=== PATIENT | female | born 1980 | race Two or more races ===

== ENCOUNTER 2019-04-13 20:57 | Emergency (ER) | payer MEDICAID ==
[~2019-04-13] VITALS: Ht 165.1 cm; Wt 72.6 kg
[2019-04-13 22:09] LABS: Urine Bacteria FEW /hpf (None Seen); Urine Blood 2+ /uL (Negative); Urine Specific Gravity 1.018 (1.001-1.035); Urine WBC 406 /hpf (0 - 5); Urine WBC Clumps PRESENT /hpf (None Seen)
[2019-04-14 00:41] VITALS: BP 143/95
[2019-04-14] MEDS ORDERED: HYDROcodone-ACET 5/325MG TAB PO ONE (01:15)
[2019-04-14] MEDS ORDERED: ONDANSETRON ODT 4 MG TAB PO ONE (01:15)
== END 2019-04-14 01:28 | disposition home or self-care (01) ==
LOC: ER 21:00
DX: N39.0 Urinary tract infection, site not specified (principal); Z88.5 Allergy status to narcotic agent; Z88.8 Allergy status to other drugs, medicaments and biological substances
CPT/HCPCS: 81001; 81025; 99283; Q0162

== ENCOUNTER 2022-06-06 10:41 | Emergency (ER) | payer MEDICAID ==
[~2022-06-06] VITALS: Ht 167.6 cm; Wt 74.5 kg
[2022-06-06 11:52] LABS: Basophils # (auto) 0 10 ^3/uL (0-0.2); Basophils % (auto) 0.8 % (0.0-2.0); Eosinophils # (auto) 0 10 ^3/uL (0-0.8); Eosinophils % (auto) 0.5 % (0.0-7.0); Hematocrit 40.3 % (36.0-46.0); Hemoglobin 13.6 g/dL (12.2-16.2); Lymphocytes % (auto) 17.1 % (10.0-50.0); Mean Corpuscular Hemoglobin 29.6 pg (28.0-32.0); Mean Corpuscular Hgb Conc. 33.8 g/dL (32.0-36.0); Mean Corpuscular Volume 87.7 fL (80.0-100.0); Monocytes # (auto) 0.3 10 ^3/uL (0-1.3); Monocytes % (auto) 5.3 % (0.0-12.0); Neutrophils # (auto) 4.4 10 ^3/uL (1.6-8.6); Neutrophils % (auto) 76.3 % (37.0-80.0); Red Cell Distribution Width 14.8 % (11.8-14.3); White Blood Cell 5.8 10^3/uL (4.4-10.8)
[2022-06-06 11:54] VITALS: BP 120/87
[2022-06-06 12:11] LABS: Albumin 3.8 g/dL (3.4-5.0); Calcium 8.7 mg/dL (8.5-10.1); Magnesium 2.6 mg/dL (1.6-2.6); Potassium 3.7 mmol/L (3.5-5.1)
[2022-06-06 12:12] LABS: INR 1.04 (0.9-1.15); Partial Thromboplastin Time 28.2 sec (24.6-33.4)
[2022-06-06 12:16] LABS: BUN/Creatinine Ratio 23.3; Bilirubin, Total 0.4 mg/dL (0.2-1.0); Total Protein 7.6 g/dL (6.4-8.2)
[2022-06-06] MEDS ORDERED: HYDR50CA PO (12:50)
== END 2022-06-06 13:02 | disposition home or self-care (01) ==
LOC: ER 10:41
DX: R07.89 Other chest pain (principal); F41.1 Generalized anxiety disorder
CPT/HCPCS: 36415; 71045; 80053; 83735; 83880; 84443; 84484; 85025; 85379; 85610; 85730; 93005

== ENCOUNTER 2022-07-24 07:03 | Emergency (ER) | payer MEDICAID ==
[~2022-07-24] VITALS: Ht 167.6 cm; Wt 77.0 kg
[~2022-07-24 07:03] MED LIST: HYDR50CA PO
[2022-07-24 07:53] LABS: Basophils # (auto) 0.1 10 ^3/uL (0-0.2); Eosinophils # (auto) 0.1 10 ^3/uL (0-0.8); Eosinophils % (auto) 2.5 % (0.0-7.0); Hematocrit 41.4 % (36.0-46.0); Hemoglobin 13.6 g/dL (12.2-16.2); Lymphocytes # (auto) 1.7 10 ^3/uL (0.4-5.4); Lymphocytes % (auto) 32.6 % (10.0-50.0); Mean Corpuscular Hemoglobin 28.6 pg (28.0-32.0); Mean Corpuscular Volume 86.7 fL (80.0-100.0); Monocytes # (auto) 0.3 10 ^3/uL (0-1.3); Monocytes % (auto) 6.6 % (0.0-12.0); Neutrophils # (auto) 2.9 10 ^3/uL (1.6-8.6); Neutrophils % (auto) 56.3 % (37.0-80.0); Nucleated Red Blood Cells % 0.1 %; Red Blood Cells 4.77 10^6/uL (4.0-5.20); Red Cell Distribution Width 15.1 % (11.8-14.3); White Blood Cell 5.1 10^3/uL (4.4-10.8)
[2022-07-24] MEDS ORDERED: SODIUM CHLORIDE 0.9% 1,000 ML IV ONE ×2 (08:00)
[2022-07-24 08:16] LABS: Albumin 3.5 g/dL (3.4-5.0); Calcium 8.1 mg/dL (8.5-10.1)
[2022-07-24 08:20] LABS: BUN/Creatinine Ratio 17.1; Bilirubin, Total 0.3 mg/dL (0.2-1.0); Total Protein 7.4 g/dL (6.4-8.2)
[2022-07-24 11:55] VITALS: BP 118/76
== END 2022-07-24 12:50 | disposition home or self-care (01) ==
LOC: ER 07:03
DX: R07.89 Other chest pain (principal); F41.1 Generalized anxiety disorder; Z88.6 Allergy status to analgesic agent; Z88.8 Allergy status to other drugs, medicaments and biological substances; Z90.710 Acquired absence of both cervix and uterus
CPT/HCPCS: 36415; 71045; 80053; 84484; 85025; 93005

== ENCOUNTER 2022-10-09 11:28 | Emergency (ER) | payer MEDICAID ==
[~2022-10-09] VITALS: Ht 167.6 cm; Wt 77.3 kg
[2022-10-09 11:46] VITALS: BP 122/70
== END 2022-10-09 17:36 | disposition left against medical advice (07) ==
LOC: ER 11:28
DX: R51.9 Headache, unspecified (principal); F41.9 Anxiety disorder, unspecified; R20.2 Paresthesia of skin; Z53.21 Procedure and treatment not carried out due to patient leaving prior to being seen by health care provider

== ENCOUNTER 2025-03-13 11:54 | Emergency (ER) | payer MEDICAID ==
[~2025-03-13] VITALS: Ht 162.6 cm; Wt 75.5 kg
--- NOTE | 2025-03-13 12:21 | ED.PDOC ---
History of Present Illness HPI Comments 45-year-old female presents to the ER with prior medical history of Lyme disease, colitis, anemia, arthritis, thyroid, lupus, RA, hypertension; surgical history of hysterectomy, back surgery and the chief complaint of flu-like symptoms. Patient reports not having a sore throat, fever, chills, heavy chest, headache, shortness a breath, body ache, and cough for the past three days. Denies N/V/D. No other associated symptoms, modifiers, recent injuries or sick contacts present at this time. Chief Complaint: Flu like Time Seen by MD: 12:15 Primary Care Provider: TAMAR Reviewed Notes: Nurses Notes, Medications, Allergies Allergies: Coded Allergies: Alprazolam (Verified Allergy, Unknown, 04/13/19) Ketorolac Tromethamine (Verified Allergy, Unknown, 04/13/19) Morphine (Verified Allergy, Unknown, 04/13/19) Home Meds Active Scripts Levofloxacin Hemihydrate (LEVOFLOXACIN) 500 Mg Tab, 500 MG PO DAILY for 7 Days, #7 MG Prov:BLANCA VILLA MD 03/13/25 Prednisone (Prednisone) 10 Mg Tab, 10 MG PO DAILY for 5 Days, #5 MG Prov:BLANCA VILLA MD 03/13/25 Hydroxyzine Pamoate (Vistaril) 50 Mg Cap, 50 MG PO QHSP PRN, #20 CAP Prov:ALFRED BARRIOS 06/06/22 Information Source: Patient Mode of Arrival: Ambulatory Severity: Moderate Timing: Days Duration: Since onset, Days Prehospital treatment: None Past Medical History PAST MEDICAL HISTORY: Anemia, Arthritis, High Lipids, Thyroid Past Medical History (Other): Lupus, RA, Lyme disease, colitis Surgical History: Hysterectomy Surgical History (Other): Back surgery AUTO CLUTCH SPECIALIST History: No Pertinent AUTO CLUTCH SPECIALIST History Family History Family History: Reviewed,noncontributory to illness, Unknown Social History Smoker: Unknown Alcohol: Unknown Drugs: Unknown Lives In: Home Constitutional: reports: chills, fever, others (Body ache,); denies: diaphoresis, fatigue, malaise, sweats, weakness EENTM: reports: throat swelling; denies: blurred vision, double vision, ear bleeding, ear discharge, ear drainage, ear pain, ear ringing, eye pain, eye redness, hearing loss, mouth pain, mouth swelling, nasal discharge, nose bleeding, nose congestion, nose pain, photophobia, tearing, throat pain, voice changes, others Respiratory: reports: cough, shortness of breath; denies: hemoptysis, orthopnea, SOB at rest, SOB with excertion, stridor, wheezing, others Cardiovascular: reports: chest pain (Heavy chest); denies: dizzy spells, diaphoresis, Dyspnea on exertion, edema, irregular heart beat, left arm pain, lightheadedness, palpitations, PND, syncope, others Gastrointestinal: denies: abdomen distended, abdominal pain, blood streaked bowels, constipated, diarrhea, dysphagia, difficulty swallowing, hematemesis, melena, nausea, poor appetite, poor fluid intake, rectal bleeding, rectal pain, vomiting, others Genitourinary: denies: abnormal vagina bleeding, burning, dyspareunia, dysuria, flank pain, frequency, hematuria, incontinence, pain, , vagina disc harge, urgency, others Neurological: reports: headache; denies: dizziness, fainting, left sided numbness, left sided weakness, numbness, paresthesia, pre-existing deficit, right sided numbness, right sided weakness, seizure, speech problems, tingling, tremors, weakness, others Musculoskeletal: denies: back pain, gout, joint pain, joint swelling, muscle pain, muscle stiffness, neck pain, others Integumetry: denies: bruises, change in color, change in hair/nails, dryness, laceration, lesions, lumps, rash, wounds, others Allergic/Immunocompromised: denies: Difficulty Healing, Frequent Infections, Hives, Itching, others Hematologic/Lymphatic: denies: anemia, blood clots, easy bleeding, easy bruising, swollen glands, others Endocrine: denies: excessive hunger, excessive sweating, excessive thirst, excessive urination, flushing, intolerance to cold, intolerance to heat, unexplained weight gain, unexplained weight loss, others Psychiatric: denies: anxiety, bipolar disorder, depression, hopeless, panic disorder, schizophrenia, sleepless, suicidal, others All Other Systems: Reviewed and Negative Physical Exam General Appearance: Moderate Distress, Normal HEENT: Normal ENT Inspection, Pharynx Normal, TMs Normal Neck: Full Range of Motion, Non-Tender, Normal, Normal Inspection Respiratory: Chest Non-Tender, Lungs Clear, No Accessory Muscle Use, No Respiratory Distress, Normal Breath Sounds Cardiovascular: No Edema, No JVD, No Murmur, No Gallop, Normal Peripheral Pulses, Regular Rate/Rhythm Breast Exam: Deferred Gastrointestinal: No Organomegaly, Non Tender, No Pulsatile Mass, Normal Bowel Sounds, Soft Genitalia: Deferred Pelvic: Deferred Rectal: Deferred Extremities: No calf tenderness, Normal capillary refill, Normal inspection, Normal range of motion, Non-tender, No pedal edema Musculoskeletal : Apperance: Normal 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 Was a procedure done?: No Differential Dx Considerations may include: Pneumonitis Electrolyte imbalance X-Ray, Labs, Meds, VS Vital Signs Date Time Temp Pulse Resp B/P (MAP) Pulse Ox O2 Delivery O2 Flow Rate FiO2 03/13/25 12:02 98.3 110 16 132/87 (102) 97 98.3 Lab Test 03/13/25 12:38 Range/Units D-Dimer, Quantitative 0.29 0.0-0.49 mg/L FEU Patient alert. Complaining of cough congestion. Vitals stable. Answering questions. Saturation pristine on room air. Respiratory rate within normal limits. Clinical examination heart rate within normal limits. D-dimer within normal limits. No leg swelling. Chest x-ray reviewed does show pneumonitis. Was given prescription of prednisolone Levaquin antibiotic. Explained to the patient her diagnosis. Was told to follow up with her primary care physician. Was told to come back if there is any problem. [address] [address] Ph: [phone] DIAGNOSTIC IMAGING Diagnostic Imaging Report : [id number] Signed PATIENT: VALERIANO GARCIA ACCT: [id number] UNIT: [id number] : 1980 LOC: ER ROOM / BED: / AGE / SEX: 45 / F ADM STATUS: REG ER SERVICE [id number] ORDERING PHYSICIAN: BLANCA VILLA MD PROCEDURE(s): CXRP - CHEST PORTABLE REASON: sob ORDER NUMBER(s): [id number], ACCESSION NUMBER(s): [id number] XY CHEST PORTABLE, HISTORY: sob COMPARISON: CHEST PORTABLE on DOS: 07/24/22, CXRP on DOS: 07/24/22, CHEST PORTABLE on DOS: 06/06/22 CHEST PORTABLE on DOS: 07/24/22, CXRP on DOS: 07/24/22, CHEST PORTABLE on DOS: 06/06/22 TECHNICAL DATA: 1 view of the chest was obtained. FINDINGS: Lines and tubes: None Cardiomediastinal silhouette: normal Pulmonary vasculature: normal Lung expansion: normal Lung airspace: normal Lung interstitium: normal Pleura: normal Pneumothorax: no Bones: Unremarkable Other: no IMPRESSION: No acute intrathoracic abnormality. ATED BY: ABDELRAHMAN GARRETT MD DICTATED DATE/TIME: 03/13/25 1300 SIGNED BY: ABDELRAHMAN GARRETT MD SIGNED DATE/TIME: 03/13/25 1300 CC: Time of 1ST Reevaluation: 12:45 Reevaluation 1ST: Improved Patient Education/Counseling: Diagnosis, Treatment, Prognosis Family Education/Counseling: No Family Present Departure 1 Departure Time of Disposition: 13:26 Impression: Primary Impression: Pneumonitis Disposition: 01 HOME / SELF CARE / HOMELESS Condition: Good e-Prescriptions Levofloxacin Hemihydrate (LEVOFLOXACIN) 500 Mg Tab 500 MG PO DAILY for 7 Days, #7 MG Prov: BLANCA VILLA MD 03/13/25 Prednisone (Prednisone) 10 Mg Tab 10 MG PO DAILY for 5 Days, #5 MG Prov: BLANCA VILLA MD 03/13/25 Discharged With: Self Critical Care Note Critical Care Time?: No Stability Stability form required: No Heart Score Heart Score: Heart Score Response (Comments) Value History N/A 0 EKG N/A 0 Age N/A 0 Risk Factors N/A 0 Troponin N/A 0 Total 0 I personally scribed for BLANCA VILLA MD ([email or web address]) on 03/13/25 at 12:21. Electronically submitted by Leobardo Bright ([email or web address]). I personally scribed for BLANCA VILLA MD ([email or web address]) on 03/13/25 at 13:40. Electronically submitted by Leobardo Bright ([email or web address]). BLANCA VILLA MD March 13, 2025 12:21
--- NOTE | 2025-03-13 13:03 | DVH ---
XY CHEST PORTABLE, HISTORY: sob COMPARISON: CHEST PORTABLE on DOS: 07/24/22, CXRP on DOS: 07/24/22, CHEST PORTABLE on DOS: 06/06/22 CHEST PORTABLE on DOS: 07/24/22, CXRP on DOS: 07/24/22, CHEST PORTABLE on DOS: 06/06/22 TECHNICAL DATA: 1 view of the chest was obtained. FINDINGS: Lines and tubes: None Cardiomediastinal silhouette: normal Pulmonary vasculature: normal Lung expansion: normal Lung airspace: normal Lung interstitium: normal Pleura: normal Pneumothorax: no Bones: Unremarkable Other: no IMPRESSION: No acute intrathoracic abnormality.
[2025-03-13] MEDS ORDERED: LEVO500T91 PO (13:27)
[2025-03-13] MEDS ORDERED: PRED10TA PO (13:27)
[2025-03-13 13:43] VITALS: BP 104/70; PULSE 100; RESP 20; TEMP 98.4; O2SAT 98
== END 2025-03-13 13:47 | disposition home or self-care (01) ==
LOC: ER 11:54
DX: J18.9 Pneumonia, unspecified organism (principal); I10 Essential (primary) hypertension; F17.200 Nicotine dependence, unspecified, uncomplicated; M19.90 Unspecified osteoarthritis, unspecified site; Z90.710 Acquired absence of both cervix and uterus; Z98.890 Other specified postprocedural states; Z88.5 Allergy status to narcotic agent
CPT/HCPCS: 36415; 71045; 85379

== ENCOUNTER 2025-04-03 13:43 | Emergency (ER) | payer MEDICAID ==
[~2025-04-03] VITALS: Ht 162.6 cm; Wt 75.6 kg
[~2025-04-03 13:43] MED LIST changes: +LEVO500T91 PO; +PRED10TA PO
--- NOTE | 2025-04-03 13:55 | ED.PDOC ---
SOB-HPI HPI Comments 45y F who presents to the ED for chief complaint of cough. Pt states she has been having cough for the past 4 hours. Pt states she has been having associated dry cough which recently became green and bilious. Pt otherwise states she did recently test positive for COVID. Pt otherwise denies any recent sick contacts. Pt states she was at [facility] 1 month prior with respiratory distress and states she was given antibiotic Levaquin and discharged. Pt otherwise denies any other symptoms at this time. Time Seen by MD: 14:00 Primary Care Provider: TAMAR Rocha notes: Medications, Allergies Information Source: Patient Mode of Arrival: Ambulatory Past Medical History PAST MEDICAL HISTORY: Anemia, Arthritis, High Lipids, Thyroid Surgical History: Hysterectomy CHEMICAL ENGINEER History: No Pertinent CHEMICAL ENGINEER History Family History Family History: Reviewed,noncontributory to illness, Unknown Social History Smoker: Unknown Alcohol: Unknown Drugs: Unknown Lives In: Home Constitutional: denies: chills, diaphoresis, fatigue, fever, malaise, sweats, weakness, others EENTM: denies: blurred vision, double vision, ear bleeding, ear discharge, ear drainage, ear pain, ear ringing, eye pain, eye redness, hearing loss, mouth pain, mouth swelling, nasal discharge, nose bleeding, nose congestion, nose pain, photophobia, tearing, throat pain, throat swelling, voice changes, others Respiratory: reports: cough; denies: hemoptysis, orthopnea, SOB at rest, shortness of breath, SOB with excertion, stridor, wheezing, others Cardiovascular: denies: chest pain, dizzy spells, diaphoresis, Dyspnea on exertion, edema, irregular heart beat, left arm pain, lightheadedness, palpitations, PND, syncope, others Gastrointestinal: denies: abdomen distended, abdominal pain, blood streaked bowels, constipated, diarrhea, dysphagia, difficulty swallowing, hematemesis, melena, nausea, poor appetite, poor fluid intake, rectal bleeding, rectal pain, vomiting, others Genitourinary: denies: abnormal vagina bleeding, burning, dyspareunia, dysuria, flank pain, frequency, hematuria, incontinence, pain, , vagina discharge, urgency, others Neurological: denies: dizziness, fainting, headache, left sided numbness, left sided weakness, numbness, paresthesia, pre-existing deficit, right sided nu mbness, right sided weakness, seizure, speech problems, tingling, tremors, weakness, others Musculoskeletal: denies: back pain, gout, joint pain, joint swelling, muscle pain, muscle stiffness, neck pain, others Integumetry: denies: bruises, change in color, change in hair/nails, dryness, laceration, lesions, lumps, rash, wounds, others Allergic/Immunocompromised: denies: Difficulty Healing, Frequent Infections, Hives, Itching, others Hematologic/Lymphatic: denies: anemia, blood clots, easy bleeding, easy bruising, swollen glands, others Endocrine: denies: excessive hunger, excessive sweating, excessive thirst, excessive urination, flushing, intolerance to cold, intolerance to heat, unexplained weight gain, unexplained weight loss, others Psychiatric: denies: anxiety, bipolar disorder, depression, hopeless, panic disorder, schizophrenia, sleepless, suicidal, others All Other Systems: Reviewed and Negative Physical Exam General Appearance: No Apparent Distress, Normal HEENT: Normal ENT Inspection, Pharynx Normal, TMs Normal Neck: Full Range of Motion, Non-Tender, Normal, Normal Inspection Respiratory: Other (mild cough,) Cardiovascular: No Edema, No JVD, No Murmur, No Gallop, Normal Peripheral Pulses, Regular Rate/Rhythm Breast Exam: Deferred Gastrointestinal: No Organomegaly, Non Tender, No Pulsatile Mass, Normal Bowel Sounds, Soft Genitalia: Deferred Pelvic: Deferred Rectal: Deferred Extremities: No calf tenderness, Normal capillary refill, Normal inspection, Normal range of motion, Non-tender, No pedal edema Musculoskeletal : Apperance: Normal 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 Was a procedure done?: No Differential Dx Differential Diagnosis: Anxiety, Asthma, Bronchitis, Panic Attack, Pneumonia, Pneumothorax, Respiratory Distress, Pharyngitis, URI Comments COVID, Influenza A and B, X-Ray, Labs, Meds, VS Vital Signs Date Time Temp Pulse Resp B/P (MAP) Pulse Ox O2 Delivery O2 Flow Rate FiO2 04/03/25 14:15 20 96 Room Air* 0 21 04/03/25 13:50 20 98 Room Air* 0 21 6/14/25 13:50 98.4 126 20 133/76 (95) 98 98.4 Current Medications Medications (Trade) Dose Ordered Sig/Dina Route Start Time Stop Time Status Last Admin Albuterol (Ventolin Medneb) 5 mg ONCE ONCE NEB 04/03/25 14:00 04/03/25 14:01 DC 04/03/25 14:15 Ipratropium Meridian (Atrovent Medneb) 0.5 mg ONCE ONCE NEB 04/03/25 14:00 04/03/25 14:01 DC 04/03/25 14:15 Dexamethasone (Decadron Tablet) 4 mg ONCE ONCE PO 04/03/25 14:00 04/03/25 14:01 DC 04/03/25 14:28 Promethazine HCl/ Codeine (Phenergan W/ Codeine) 5 ml ONCE ONCE PO 04/03/25 14:00 04/03/25 14:01 DC 04/03/25 14:28 [place] [address] Ph: [phone] DIAGNOSTIC IMAGING Diagnostic Imaging Report : [id number] Signed PATIENT: VALERIANO GARCIA ACCT: [id number] UNIT: [id number] : 1980 LOC: ER ROOM / BED: / AGE / SEX: 45 / F ADM STATUS: REG ER SERVICE 1350 ORDERING PHYSICIAN: YOVANNY TOWNSEND MD PROCEDURE(s): CXRP - CHEST PORTABLE REASON: cough ORDER NUMBER(s): [id number], ACCESSION NUMBER(s): [id number] XY CHEST PORTABLE, HISTORY: cough COMPARISON: XY CHEST PORTABLE on DOS: 03/13/25, CHEST PORTABLE on DOS: 07/24/22, CXRP on DOS: 07/24/22 XY CHEST PORTABLE on DOS: 03/13/25, CHEST PORTABLE on DOS: 07/24/22, CXRP on DOS: 07/24/22 TECHNICAL DATA: 1 view of the chest was obtained. FINDINGS: Lines and tubes: None Cardiomediastinal silhouette: normal Pulmonary vasculature: normal Lung expansion: normal Lung airspace: normal Lung interstitium: normal Pleura: normal Pneumothorax: no Bones: Unremarkable Other: no IMPRESSION: No acute intrathoracic abnormality. ATED BY: ABDELRAHMAN GARRETT MD DICTATED DATE/TIME: 04/03/251423 SIGNED BY: ABDELRAHMAN GARRETT MD SIGNED DATE/TIME: 04/03/251423 CC: Time of 1ST Reevaluation: 15:00 Reevaluation 1ST: Improved Patient Education/Counseling: Diagnosis, Treatment Family Education/Counseling: No Family Present Departure 1 Departure Time of Disposition: 14:57 Impression: Primary Impression: Bronchitis Disposition: 01 HOME / SELF CARE / HOMELESS Condition: Good e-Prescriptions Benzonatate (Benzonatate) 200 Mg Cap 200 MG PO Q6HP PRN, #30 CAP Prov: YOVANNY TOWNSEND MD 04/03/25 Prednisone (Prednisone) 20 Mg Tab 20 MG PO DAILY, #5 TAB Prov: YOVANNY TOWNSEND MD 04/03/25 Ipratropium-Albuterol (COMBIVENT RESPIMAT) Respimat Aer 1 EA IN Q4HP PRN, #1 AER Prov: YOVANNY TOWNSEND MD 04/03/25 Discharged With: Self Critical Care Note Critical Care Time?: No Stability Stability form required: No Heart Score Heart Score: Heart Score Response (Comments) Value History N/A 0 EKG N/A 0 Age N/A 0 Risk Factors N/A 0 Troponin N/A 0 Total 0 I personally scribed for YOVANNY TOWNSEND MD ([email or web address]) on 04/03/25 at 13:55. Electronically submitted by Leobardo Bright ([email or web address]). I personally scribed for YOVANNY TOWNSEND MD ([email or web address]) on 04/03/25 at 14:02. Electronically submitted by Consuelo Cm ([email or web address]). I personally scribed for YOVANNY TOWNSEND MD ([email or web address]) on 04/03/25 at 14:39. Electronically submitted by Consuelo Cm ([email or web address]). YOVANNY TOWNSEND MD Apr 03, 2025 13:55
[2025-04-03] MEDS: IPRATROPIUM BROM 0.5 MG/2.5ML INH SOL NEB ONE (14:15)
[2025-04-03] MEDS: ALBUTEROL SULF 2.5 MG/0.5ML(0.5%) NEB SOLN NEB ONE (14:15)
--- NOTE | 2025-04-03 14:26 | DVH ---
XY CHEST PORTABLE, HISTORY: cough COMPARISON: XY CHEST PORTABLE on DOS: 03/13/25, CHEST PORTABLE on DOS: 07/24/22, CXRP on DOS: 07/24/22 XY CHEST PORTABLE on DOS: 03/13/25, CHEST PORTABLE on DOS: 07/24/22, CXRP on DOS: 07/24/22 TECHNICAL DATA: 1 view of the chest was obtained. FINDINGS: Lines and tubes: None Cardiomediastinal silhouette: normal Pulmonary vasculature: normal Lung expansion: normal Lung airspace: normal Lung interstitium: normal Pleura: normal Pneumothorax: no Bones: Unremarkable Other: no IMPRESSION: No acute intrathoracic abnormality.
[2025-04-03] MEDS: DexAMETHasone 4 MG TAB PO ONE (14:28)
[2025-04-03] MEDS: PROMETHAZINE W/CODEINE 5 ML ORAL SYRUP PO ONE (14:28)
[2025-04-03] MEDS ORDERED: PRED20TA2 PO (15:00)
[2025-04-03] MEDS ORDERED: BENZ200C64 PO (15:00)
[2025-04-03] MEDS ORDERED: IPRAAER6 IN (15:00)
[2025-04-03 15:15] VITALS: BP 129/87; PULSE 76; RESP 19; TEMP 98.6; O2SAT 94
== END 2025-04-03 15:21 | disposition home or self-care (01) ==
LOC: ER 13:43
DX: J40 Bronchitis, not specified as acute or chronic (principal); M19.90 Unspecified osteoarthritis, unspecified site; E78.5 Hyperlipidemia, unspecified; U07.1 COVID-19; Z86.2 Personal history of diseases of the blood and blood-forming organs and certain disorders involving the immune mechanism; Z90.710 Acquired absence of both cervix and uterus
CPT/HCPCS: 71045; 94640; 99283; J8540

== ENCOUNTER 2025-08-15 13:08 | Emergency (ER) | payer MEDICAID ==
[~2025-08-15] VITALS: Ht 162.6 cm; Wt 73.9 kg
[~2025-08-15 13:08] MED LIST changes: +BENZ200C64 PO; +IPRAAER6 IN; +PRED20TA2 PO
[2025-08-15 13:50] LABS: Urine Protein, UAD Negative (Negative)
--- NOTE | 2025-08-15 14:04 | ED.PDOC ---
GI ASSESSMENT HPI Comments This is a 45 year-old female who presents to the ED with a chief complaint of constipation for X5 days. Patient reports additional symptoms of abdominal distention and pain with associated constipation. Patient reports this happening before, where she was prescribed Linzess with relief. Patient states after taking Linzess for current symptoms, she has experienced no relief. Patient has a PMHx of HTN and hyperlipidemia, but otherwise denies further associated symptoms of dysuria, hematuria, N/V/D, fever, or chills. Chief Complaint: Constipation Time Seen by MD: 13:42 Primary Care Provider: n/a Reviewed Notes: Medications, Allergies Allergies: Coded Allergies: Droperidol (Verified Allergy, Severe, 08/15/25) Vancomycin (Verified Allergy, Mild, HIVES, 04/03/25) Alprazolam (Verified Allergy, Unknown, 04/13/19) Ketorolac Tromethamine (Verified Allergy, Unknown, 04/13/19) Morphine (Verified Allergy, Unknown, 04/13/19) Levofloxacin (Verified Adverse Reaction, Mild, 04/03/25) Uncoded Allergies: CONTRAST (Allergy, Unknown, 08/15/25) Home Meds Active Scripts Benzonatate (Benzonatate) 200 Mg Cap, 200 MG PO Q6HP PRN, #30 CAP Prov:YOVANNY TOWNSEND MD 04/03/25 Prednisone (Prednisone) 20 Mg Tab, 20 MG PO DAILY, #5 TAB Prov:YOVANNY TOWNSEND MD 04/03/25 Ipratropium-Albuterol (COMBIVENT RESPIMAT) Respimat Aer, 1 EA IN Q4HP PRN, #1 AER Prov:YOVANNY TOWNSEND MD 04/03/25 Levofloxacin Hemihydrate (LEVOFLOXACIN) 500 Mg Tab, 500 MG PO DAILY for 7 Days, #7 MG Prov:BLANCA VILLA MD 03/13/25 Prednisone (Prednisone) 10 Mg Tab, 10 MG PO DAILY for 5 Days, #5 MG Prov:BLANCA VILLA MD 03/13/25 Hydroxyzine Pamoate (Vistaril) 50 Mg Cap, 50 MG PO QHSP PRN, #20 CAP Prov:ALFRED BARRIOS 06/06/22 Information Source: Patient Mode of Arrival: Ambulatory Timing: Days Duration: Since onset Severity: Moderate Associated sign and symptoms: Constipation, Abdominal Pain Past Medical History PAST MEDICAL HISTORY: Anemia, Arthritis, High Lipids, HTN, Thyroid Surgical History: Hysterectomy 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: No Pertinent 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 Family History Family History: Reviewed,noncontributory to illness, Unknown Social History Smoker: Unknown Alcohol: Unknown Drugs: Unknown Lives In: Home Constitutional: denies: chills, diaphoresis, fatigue, fever, malaise, sweats, weakness, others EENTM: denies: blurred vision, double vision, ear bleeding, ear discharge, ear drainage, ear pain, ear ringing, eye pain, eye redness, hearing loss, mouth pain, mouth swelling, nasal discharge, nose bleeding, nose congestion, nose pain, photophobia, tearing, throat pain, throat swelling, voice changes, others Respiratory: denies: cough, hemoptysis, orthopnea, SOB at rest, shortness of breath, SOB with excertion, stridor, wheezing, others Cardiovascular: denies: chest pain, dizzy spells, diaphoresis, Dyspnea on exertion, edema, irregular heart beat, left arm pain, lightheadedness, palpitations, PND, syncope, others Gastrointestinal: reports: abdomen distended, abdominal pain, constipated; denies: blood streaked bowels, diarrhea, dysphagia, difficulty swallowing, hematemesis, melena, nausea, poor appetite, poor fluid intake, rectal bleeding, rectal pain, vomiting, others Genitourinary: denies: abnormal vagina bleeding, burning, dyspareunia, dysuria, flank pain, frequency, hematuria, incontinence, pain, , vagina discharge, urgency, others Neurological: denies: dizziness, fainting, headache, left sided numbness, left sided weakness, numbness, paresthesia, pre-existing deficit, right sided numbness, right sided weakness, seizure, speech problems, tingling, tremors, weakness, others Musculoskeletal: denies: back pain, gout, joint pain, joint swelling, muscle pain, muscle stiffness, neck pain, others Integumetry: denies: bruises, change in color, change in hair/nails, dryness, laceration, lesions, lumps, rash, wounds, others Allergic/Immunocompromised: denies: Difficulty Healing, Frequent Infections, Hives, Itching, others Hematologic/Lymphatic: denies: anemia, blood clots, easy bleeding, easy bruising, swollen glands, others Endocrine: denies: excessive hunger, excessive sweating, excessive thirst, excessive urination, flushing, intolerance to cold, intolerance to heat, unexplained weight gain, unexplained weight loss, others Psychiatric: denies: anxiety, bipolar disorder, depression, hopeless, panic disorder, schizophrenia, sleepless, suicidal, others All Other Systems: Reviewed and Negative Physical Exam General Appearance: Moderate Distress HEENT: Normal ENT Inspection, Pharynx Normal, TMs Normal Neck: Full Range of Motion, Non-Tender, Normal, Normal Inspection Respiratory: Chest Non-Tender, Lungs Clear, No Accessory Muscle Use, No Respiratory Distress, Normal Breath Sounds Cardiovascular: No Edema, No JVD, No Murmur, No Gallop, Normal Peripheral Pulses, Regular Rate/Rhythm Breast Exam: Deferred Gastrointestinal: No Organomegaly, Non Tender, No Pulsatile Mass, Normal Bowel Sounds, Soft Genitalia: Deferred Pelvic: Deferred Rectal: Deferred Extremities: No calf tenderness, Normal capillary refill, Normal inspection, Normal range of motion, Non-tender, No pedal edema Musculoskeletal : Apperance: Normal Neurologic: Alert, 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 Was a procedure done?: No GI differential Dx Differential Diagnosis: Constipation, Diverticular disease, Esophagitis, Gastritis/PUD, Gastroenteritis, Urolithiasis, Dehydration, Food Poisoning, Bacterial, Parasitic, Viral X-Ray, Labs, Meds, VS Vital Signs Date Time Temp Pulse Resp B/P (MAP) Pulse Ox O2 Delivery O2 Flow Rate FiO2 08/15/25 13:11 97.5 85 18 130/83 100 97.5 Lab Test 08/15/25 13:42 Range/Units Urine Color Light-yellow Yellow Urine Clarity Clear Clear Urine pH 7.5 5.0-9.0 Urine Specific [place] 1.020 1.001-1.035 Urine Protein Negative Negative Urine Ketones Negative Negative Urine Blood Negative Negative /uL Urine Nitrite Negative Negative Urine Bilirubin Negative Negative Urine Urobilinogen 2 H Negative mg/dL Urine Leukocyte Esterase Negative Negative /uL Urine RBC 2 0 - 4 /hpf Urine Microscopic WBC 1 0-5 /HPF Urine Squamous Epithelial Cells Few <5 /hpf Urine Bacteria Few H None Seen /hpf Urine Glucose Normal Normal mg/dL [facility] [id number] [facility] [address] Ph: [phone] DIAGNOSTIC IMAGING Diagnostic Imaging Report : [id number] Signed PATIENT: VALERIANO GARCIA ACCT: [id number] UNIT: [id number] : 1980 LOC: ER ROOM / BED: / AGE / SEX: 45 / F ADM STATUS: REG ER SERVICE 1400 ORDERING PHYSICIAN: BLANCA VILLA MD PROCEDURE(s): KUB - KUB ABDOMEN SINGLE VIEW REASON: constipation ORDER NUMBER(s): [id number], ACCESSION NUMBER(s): [id number] Date: 08/15/2025 02:18 PM Examination: XY KUB ABDOMEN SINGLE VIEW History: constipation Comparison: XR ABDOMEN 1 VIEW (KUB) on DOS: 07/30/23, XR ABDOMEN 1 VIEW (KUB) on DOS: 07/28/23 TECHNIQUE: Frontal views of the abdomen was obtained. FINDINGS: Bowel gas pattern is unremarkable. Stool is noted throughout the colon may represent constipation The lung bases are unremarkable. Pedicle screws and rods are in place at L5-S1 on the left. Intervertebral spac ers noted. IMPRESSION: 1. Nonobstructive bowel gas pattern. 2. Large stool burden throughout the colon may represent constipation. 3. Postop changes at L5-S1 on the left. Patient alert. Complaining of constipation. Vitals stable. Answering all questions. Ambulating. KUB does show constipation. Was given Fleet enema. Was told to follow up with her primary care physician. Was told to come back if there is any problem. Images Reviewed?: Images reviewed and evaluated by me Time of 1ST Reevaluation: 14:42 Reevaluation 1ST: Unchanged Patient Education/Counseling: Diagnosis, Treatment Family Education/Counseling: No Family Present SEPSIS Sepsis Screen Date sepsis recognized/suspect: Aug 15, 2025 Time Sepsis recognized/suspect: 1314 Recent Procedure: No On Antibiotic Therapy: No Respiratory Rate >20: No Heart Rate >90: No Temp<36 C (96.8 F) or >38.3 C: No SBP <90 or MAP <65 mmHG: No New Acute Mental Status Change: No Is the patient on CPAP, BIPAP,: No Physician Orders Kub Abdomen Single View (08/15/25 14:00) Fleet Enema Adult (08/15/25 15:30) Vital Signs Date Time Temp Pulse Resp B/P (MAP) Pulse Ox O2 Delivery O2 Flow Rate FiO2 08/15/25 13:11 97.5 85 18 130/83 100 97.5 Departure 1 Departure Time of Disposition: 15:22 Impression: Primary Impression: Constipation Qualified Codes: K59.01 - Slow transit constipation Disposition: 01 HOME / SELF CARE / HOMELESS Condition: Good Discharged With: Self Critical Care Note Critical Care Time?: No Stability Stability form required: No Heart Score Heart Score: Heart Score Response (Comments) Value History N/A 0 EKG N/A 0 Age N/A 0 Risk Factors N/A 0 Troponin N/A 0 Total 0 I personally scribed for BLANCA VILLA MD ([email or web address]) on 08/15/25 at 14:04. Electronically submitted by Maty Granger ([employer]). I personally scribed for BLANCA VILLA MD ([email or web address]) on 08/15/25 at 14:44. Electronically submitted by Maty Granger ([employer]). BLANCA VILLA MD Aug 15, 2025 14:04
--- NOTE | 2025-08-15 14:40 | DVH ---
Date: 08/15/2025 02:18 PM Examination: XY KUB ABDOMEN SINGLE VIEW History: constipation Comparison: XR ABDOMEN 1 VIEW (KUB) on DOS: 07/30/23, XR ABDOMEN 1 VIEW (KUB) on DOS: 07/28/23 TECHNIQUE: Frontal views of the abdomen was obtained. FINDINGS: Bowel gas pattern is unremarkable. Stool is noted throughout the colon may represent constipation The lung bases are unremarkable. Pedicle screws and rods are in place at L5-S1 on the left. Intervertebral spacers noted. IMPRESSION: 1. Nonobstructive bowel gas pattern. 2. Large stool burden throughout the colon may represent constipation. 3. Postop changes at L5-S1 on the left.
[2025-08-15 15:29] VITALS: BP 126/76; TEMP 97.5
[2025-08-15 15:33] VITALS: PULSE 74; RESP 16; O2SAT 100
[2025-08-15] MEDS: FLEET ENEMA(ADULT) 135 ML PR ONE (15:35)
== END 2025-08-15 15:35 | disposition home or self-care (01) ==
LOC: ER 13:08
DX: K59.00 Constipation, unspecified (principal); I10 Essential (primary) hypertension; E78.5 Hyperlipidemia, unspecified; M19.90 Unspecified osteoarthritis, unspecified site; F17.200 Nicotine dependence, unspecified, uncomplicated; Z90.710 Acquired absence of both cervix and uterus; Z88.5 Allergy status to narcotic agent; Z88.1 Allergy status to other antibiotic agents
CPT/HCPCS: 74018; 81001

== ENCOUNTER 2025-10-10 02:24 | Inpatient (IN) | payer MEDICAID ==
[~2025-10-10] VITALS: Ht 167.6 cm; Wt 98.1 kg
[~2025-10-10 02:24] MED LIST changes: +ATOR40TA52 PO; +ERGO1CAP12 PO; +LINA1CAP2 PO; +LOSA50TA30 PO; +MECL-126 PO; +SEMA2.4I SC; +TIZA6CAP PO
[2025-10-10] MEDS: fentaNYL CITRATE 100 MCG/2 ML VL IV ONE ×2 (03:00→09:00)
--- NOTE | 2025-10-10 03:07 | ED.PDOC ---
History of Present Illness HPI Comments 45 y/o F is BIBA for c/c of abdominal pain, nausea, vomiting, diarrhea, and lightheadedness. Significant history for anemia, arthritis, HLD, HTN, IBS - on Linaclotide, hypothyroidism, and hysterectomy. Symptoms began, suddenly, at around [id number], yesterday. No endorsed recent travel, injuries, sick contacts, or further pertinent events or history. Denial of any bloody or bilious vomitus, constipation, or further acute symptoms. Chief Complaint: Nausea/Vomiting Time Seen by MD: 02:45 Primary Care Provider: n/a Reviewed Notes: Nurses Notes, Cigar Head Pegger Notes, Medications, Allergies Allergies: Coded Allergies: Droperidol (Verified Allergy, Severe, 08/15/25) Vancomycin (Verified Allergy, Mild, HIVES, 04/03/25) Alprazolam (Verified Allergy, Unknown, 04/13/19) Ketorolac Tromethamine (Verified Allergy, Unknown, 04/13/19) Morphine (Verified Allergy, Unknown, 04/13/19) Levofloxacin (Verified Adverse Reaction, Mild, 04/03/25) Uncoded Allergies: CONTRAST (Allergy, Unknown, 08/15/25) Home Meds Active Scripts Benzonatate (Benzonatate) 200 Mg Cap, 200 MG PO Q6HP PRN, #30 CAP Prov:YOVANNY TOWNSEND MD 04/03/25 Prednisone (Prednisone) 20 Mg Tab, 20 MG PO DAILY, #5 TAB Prov:YOVANNY TOWNSEND MD 04/03/25 Ipratropium-Albuterol (COMBIVENT RESPIMAT) Respimat Aer, 1 EA IN Q4HP PRN, #1 AER Prov:YOVANNY TOWNSEND MD 04/03/25 Levofloxacin Hemihydrate (LEVOFLOXACIN) 500 Mg Tab, 500 MG PO DAILY for 7 Days, #7 MG Prov:BLANCA VILLA MD 03/13/25 Prednisone (Prednisone) 10 Mg Tab, 10 MG PO DAILY for 5 Days, #5 MG Prov:BLANAC VILLA MD 03/13/25 Hydroxyzine Pamoate (Vistaril) 50 Mg Cap, 50 MG PO QHSP PRN, #20 CAP Prov:ALFRED BARRIOS 06/06/22 Information Source: Patient, Emergency Med Personnel Mode of Arrival: EMS Severity: Moderate Timing: Hours Duration: Since onset Prehospital treatment: 12 Lead EKG, Accucheck, Desktop Operator Past Medical History PAST MEDICAL HISTORY: Anemia, Arthritis, High Lipids, HTN, Thyroid (hypothyroidism ) Past Medical History (Other): IBS - on Linaclotide Surgical History: Hysterectomy 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 FIRE FIGHTER History Family History Family History: Reviewed,noncontributory to illness, Unknown Social History Smoker: Unknown Alcohol: Unknown Drugs: Unknown Lives In: Home All Other Systems: Reviewed and Negative (Comprehensive systems review obtained and negative except for what is stated in the HPI.) Physical Exam General Appearance: No Apparent Distress, Normal HEENT: Normal ENT Inspection, Pharynx Normal, TMs Normal Neck: Full Range of Motion, Non-Tender, Normal, Normal Inspection Respiratory: Chest Non-Tender, Lungs Clear, No Accessory Muscle Use, No Respiratory Distress, Normal Breath Sounds Cardiovascular: No Edema, No JVD, No Murmur, No Gallop, Normal Peripheral Pulses, Regular Rate/Rhythm Breast Exam: Deferred Gastrointestinal: No Organomegaly, No Pulsatile Mass, Normal Bowel Sounds, Soft, Tenderness (with palpation) Genitalia: Deferred Pelvic: Deferred Rectal: Deferred Extremities: No calf tenderness, Normal capillary refill, Normal inspection, Normal range of motion, Non-tender, No pedal edema Musculoskeletal : Apperance: Normal Neurologic: Alert, automotive design 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 Was a procedure done?: No Differential Dx Considerations may include: IBS, constipation, gastritis, gastroenteritis, GERD, viral, cholelithiasis, cholecystitis, diverticulitis, appendicitis, among others X-Ray, Labs, Meds, VS Vital Signs Date Time Temp Pulse Resp B/P (MAP) Pulse Ox O2 Delivery O2 Flow Rate FiO2 10/10/25 03:55 98.3 123 18 113/83 (93) 98 98.3 10/10/25 02:35 98.0 126 24 129/76 96 98.0 Lab Test 10/10/25 03:03 Range/Units White Blood Count 18.3 H 4.4-10.8 10^3/uL Red Blood Count 5.31 H 4.0-5.20 10^6/uL Hemoglobin 16.1 12.2-16.2 g/dL Hematocrit 47.9 H 36.0-46.0 % Mean Corpuscular Volume 90.2 80.0-100.0 fL Mean Corpuscular Hemoglobin 30.4 28.0-32.0 pg Mean Corpuscular Hemoglobin Concent 33.7 32.0-36.0 g/dL Red Cell Distribution Width 13.7 11.8-14.3 % Platelet Count 358 140-450 10^3/uL Mean Platelet Volume 8.0 6.9-10.8 fL Neutrophils (%) (Auto) 93.8 H 37.0-80.0 % Lymphocytes (%) (Auto) 2.1 L 10.0-50.0 % Monocytes (%) (Auto) 3.7 0.0-12.0 % Eosinophils (%) (Auto) 0.3 0.0-7.0 % Basophils (%) (Auto) 0.1 0.0-2.0 % Neutrophils # (Auto) 17.2 H 1.6-8.6 10 ^3/uL Lymphocytes # (Auto) 0.4 0.4-5.4 10 ^3/uL Monocytes # (Auto) 0.7 0-1.3 10 ^3/uL Eosinophils # (Auto) 0.1 0-0.8 10 ^3/uL Basophils # (Auto) 0 0-0.2 10 ^3/uL Nucleated Red Blood Cells 0.0 % Sodium Level 139 136-145 mmol/L Potassium Level 3.8 3.5-5.1 mmol/L Chloride Level 107 98-107 mmol/L Carbon Dioxide Level 18 L 20-31 mmol/L Anion Gap 14 5-15 Blood Urea Nitrogen 11 9-23 mg/dL Creatinine 0.54 L 0.550-1.02 mg/dL Glomerular Filtration Rate Calc 115 >90 mL/min BUN/Creatinine Ratio 20.4 H 10.0-20.0 Serum Glucose 133 H 74-106 mg/dL Calcium Level 9.2 8.7-10.4 mg/dL Lipase 35 12-53 U/L Beta HCG, Quantitative 0.6 L 1.5-4.2 mIU/mL Current Medications Medications (Trade) Dose Ordered Sig/Dina Route Start Time Stop Time Status Last Admin Sodium Chloride 1,000 ml @ 1,000 mls/hr Q1H ONCE IV 10/10/25 03:00 10/10/25 03:59 DC 10/10/25 05:12 Ondansetron HCl (Zofran) 4 mg ONCE ONCE IV 10/10/25 03:00 10/10/25 03:01 DC 10/10/25 05:12 Time of 1ST Reevaluation: 03:30 Reevaluation 1ST: Unchanged Time of 2ND Reevaluation: 05:12 Reevaluation 2ND: Improved Patient Education/Counseling: Diagnosis, Treatment, Prognosis, Need For Follow Up Family Education/Counseling: No Family Present Comments Patient has a history of IBS with nausea vomiting abdominal pain. However she presents with more severe episode this time. She states she normally has difficulty getting IV access. She declined to have a central venous catheter placed by me. Therefore sepsis bolus fluid can not be achieved at this time due to patient refusal. We have ordered a PICC line nurse to place a PICC line her. Patient does have SIRS criteria therefore sepsis order has been initiated. Patient will be admitted to the hospital for further evaluation and treatment for intractable nausea vomiting and possible sepsis. Additional Information Previous history reviewed: August 15, 2025 encounter for constipation The following tests were ordered, and results were reviewed by me: Beta HCG, quant., CT abdomen/pelvis w/o contrast, lipase, BMP, CBC Additional Information was gathered from interviewing the following independent historians: EMS personnel I reviewed and agreed with the following test results read by other providers: C T abdomen/pelvis w/o contrast I discussed treatment and results with medical personnel and: patient SEPSIS Sepsis Screen Date sepsis recognized/suspect: Oct 10, 2025 Time Sepsis recognized/suspect: 234 Recent Procedure: No On Antibiotic Therapy: No Respiratory Rate >20: Yes Heart Rate >90: Yes Temp<36 C (96.8 F) or >38.3 C: No SBP <90 or MAP <65 mmHG: No New Acute Mental Status Change: No Is the patient on CPAP, BIPAP,: No Physician Orders Ct Ab Pel Wo Con-No Oral Or Iv (10/10/25 02:50) Urinalysis (10/10/25 04:31) Chest Portable (10/10/25 04:31) Accucheck (10/10/25 04:31) Blood Culture (10/10/25 04:31) Vancomycin 1gm/250ml Kit (10/10/25 04:45) Lactic Acid W/ Reflex Order (10/10/25 06:00) Cefepime 1gm/50ml (Maxipime 1gm/50ml) (10/10/25 04:45) Notify Md If Map <65 Or Bp<90 (10/10/25 04:31) If Map<65 Start Vasopressor (10/10/25 04:31) Sepsis Reassesment After Fluid (10/10/25 05:31) Vital Signs Date Time Temp Pulse Resp B/P (MAP) Pulse Ox O2 Delivery O2 Flow Rate FiO2 10/10/25 03:55 98.3 123 18 113/83 (93) 98 98.3 10/10/25 02:35 98.0 126 24 129/76 96 98.0 Laboratory Tests Test 10/10/25 03:03 White Blood Count 18.3 10^3/uL (4.4-10.8) H Medications Medications Dose Ordered Sig/Dina Route Start Time Stop Time Status Last Admin Dose Admin Ondansetron HCl 4 mg ONCE ONCE IV 10/10/25 03:00 10/10/25 03:01 DC 10/10/25 05:12 Sodium Chloride 1,000 ml @ 1,000 mls/hr Q1H ONCE IV 10/10/25 03:00 10/10/25 03:59 DC 10/10/25 05:12 Reassessment Post Fluid SEPSIS FOCUS EXAM(REASSESSMENT pt declined iv access by cvc. RNs are having a difficult time accessing peripheral iv. pt wishes to wait for PICC RN Date of Reassessment: Oct 10, 2025 Time of Reassessment: 05:50 Pulse Location: Radial Pulse Strength: Normal Capillary Refill Exam: < 3 seconds Skin Temperature: Warm Skin Tugor: WNL Skin Color: WNL Fingernail Color: WNL Departure 1 Departure Time of Disposition: 05:51 Impression: Primary Impression: Sepsis Additional Impression: Nausea & vomiting Disposition: ADMITTED INPATIENT Admit to: Med Surg Condition: Serious Discharged With: Self Critical Care Note Critical Care Time?: Yes (55 min-critical care time only) Critical care comment: Total critical care time: Approximately 55 minutes Due to a high probability of clinically significant, life threatening deterioration, the patient required my highest level of preparedness to intervene emergently and I personally spent this critical care time directly and personally managing the patient. This critical care time included obtaining a history; examining the patient; pulse oximetry; ordering and review of studies; arranging urgent treatment with development of a management plan; evaluation of patient's response to treatment; frequent reassessment; and, discussions with other providers. This critical care time was performed to assess and manage the high probability of imminent, life-threatening deterioration that could result in multi-organ failure. It was exclusive of separately billable procedures and treating other patients. Stability Stability form required: No Heart Score Heart Score: Heart Score Response (Comments) Value History N/A 0 EKG N/A 0 Age N/A 0 Risk Factors N/A 0 Troponin N/A 0 Total 0 I personally scribed for YOVANNY TOWNSEND MD ([email or web address]) on 10/10/25 at 03:07. Electronically submitted by Papito Reddy ([email or web address]). YOVANNY TOWNSEND MD Oct 10, 2025 03:07
[2025-10-10 03:18] LABS: Hematocrit 47.9 % (36.0-46.0); Hemoglobin 16.1 g/dL (12.2-16.2); Mean Corpuscular Hemoglobin 30.4 pg (28.0-32.0); Mean Corpuscular Volume 90.2 fL (80.0-100.0); Nucleated Red Blood Cells % 0.0 %
[2025-10-10 03:28] LABS: Chloride 107 mmol/L (98-107); Potassium 3.8 mmol/L (3.5-5.1); Sodium 139 mmol/L (136-145)
[2025-10-10 03:29] LABS: Anion Gap 14 (5-15); Calcium 9.2 mg/dL (8.7-10.4)
[2025-10-10 03:31] LABS: Carbon Dioxide 18 mmol/L (20-31)
--- NOTE | 2025-10-10 03:31 | DVH ---
EXAM: CT CT AB PEL WO CON-NO ORAL OR IV History: sbo Comparison Study: CT ABDOMEN PELVIS WITHOUT on DOS: 05/09/25, CT ABDOMEN PELVIS WITHOUT on DOS: 01/18/25, CT ABD/PEL on DOS: 07/28/23 TECHNIQUE: Multidetector CT of the abdomen and pelvis was performed from lung bases to pubic symphysis. Imaging was performed without IV contrast. Axial, coronal and sagittal multiplanar reformats were obtained from the axial data set by the technologist. Radiation optimization: All CT scans at this facility use at least one of these dose optimization techniques: automated exposure control mA and/or kV adjustment per patient size (includes targeted exams where dose is matched to clinical indication) or iterative reconstruction. Radiation Dose Information: CT Dose: CTDI volume is 11.4 mGy. Dose-length product is 687 mGy*cm FINDINGS: Evaluation of solid organs is limited due to lack of intravenous contrast use. Imaged portions of the lung bases appear unremarkable. There is a small hiatal hernia. Liver, gallbladder, spleen, pancreas and adrenal glands appear unremarkable. The kidneys appear symmetric without hydronephrosis. No evidence of bowel obstruction or focal bowel wall thickening. No free fluid, free air, or adenopathy. Appendix not well visualized, however right lower quadrant appears unremarkable. No suspicious osseous lesion. Postsurgical changes L5-S1. IMPRESSION: 1. No acute abdominal or pelvic finding. 2. Small hiatal hernia
[2025-10-10 03:34] LABS: BUN/Creatinine Ratio 20.4 (10.0-20.0); Blood Urea Nitrogen 11 mg/dL (9-23); Lipase 35 U/L (12-53)
[2025-10-10 03:35] LABS: Glucose 133 mg/dL (74-106)
[2025-10-10] MEDS ORDERED: VANCOMYCIN 1GM/250ML KIT 250 ML IV ONE (04:45)
[2025-10-10] MEDS: SODIUM CHLORIDE 0.9% 1,000 ML IV ONE (05:12)
[2025-10-10] MEDS: ONDANSETRON HCL 4 MG/2 ML VIAL IV ONE ×2 (05:12→08:59)
--- NOTE | 2025-10-10 05:18 | DVH ---
CHEST RADIOGRAPH INDICATION: leukocytosis TECHNIQUE: Single frontal view of the chest was obtained COMPARISON: XY CHEST PORTABLE on DOS: 04/03/25, XY CHEST PORTABLE on DOS: 03/13/25, XR CHEST 1 VIEW on DOS: 10/19/24 IMPRESSION: Heart appears normal in size. The lungs appear clear without focal airspace opacity, effusion, or pneumothorax
[2025-10-10] MEDS: ONDANSETRON ODT 4 MG TAB PO ONE (06:02)
[2025-10-10 07:01] LABS: Lactic Acid w/Reflex 2.5 mmol/L (0.4-2.0)
[2025-10-10] MEDS: LACTATED RINGER'S 1,800 ML IV ONE (07:54)
[2025-10-10 08:00] VITALS: PULSE 105; RESP 14; O2SAT 100
[2025-10-10] MEDS ORDERED: ONDANSETRON HCL 4 MG/2 ML VIAL IV ONE (09:15)
[2025-10-10] MEDS ORDERED: MORPHINE SULFATE 4 MG/ML SYR/VIAL IV ONE (09:15)
[2025-10-10] MEDS: CEFEPIME 1GM/50ML 50 ML IV ONE (11:00)
[2025-10-10] MEDS ORDERED: DOCUSATE SOD 100 MG CAP PO PRN (11:00)
[2025-10-10] MEDS ORDERED: ALBUTEROL SULF 2.5 MG/0.5ML(0.5%) NEB SOLN NEB PRN (11:00)
[2025-10-10] MEDS ORDERED: IPRATROPIUM BROM 0.5 MG/2.5ML INH SOL NEB PRN (11:00)
[2025-10-10] MEDS ORDERED: HYDROcodone-ACET 5/325MG TAB PO PRN (11:00)
[2025-10-10] MEDS: PROCHLORPERAZINE EDISYLATE 5 MG/ML 2ML VIAL IV ONE (11:09)
--- NOTE | 2025-10-10 11:48 | DVHHP2 ---
History of Present Illness Reason for Visit: Sepsis, unspecified organism History of Present Illness The patient is a 45-year-old female with past medical history of anxiety, anemia, arthritis, hyperlipidemia, hypertension, IBS, and thyroid disease who presented to [facility] ED with complaint of acute abdominal pain. Patient reports that she has been experiencing diffuse abdominal pain rating 7/10 numeric scale, associated with intractable nausea, vomiting, diarrhea, and lightheadedness for the past 1 day. Patient was seen and evaluated in the ED, laboratory data shows WBC 18.3, platelets 358, sodium 139, potassium 3.8, BUN 11, creatinine 0.54, GFR 115, glucose 133, calcium 9.2, lipase 35, hCG 0.6, lactic acid 2.5 trending down to 2.1, blood pressure 109/63, heart rate 126 trending down to 104, temperature 98.6 F, O2 saturation 99% on room air. Abdomen/pelvis CT revealing small hiatal hernia, no acute findings. Chest x-ray show no acute cardiopulmonary process. Patient was started on IV antibiotic regimen Zosyn, please see medication orders section in the computer. On my assessment, patient denied chest pain, no headache, dizziness, diaphoresis, shortness of breaths, no abdominal pain, nausea or vomiting at this moment, fever, no chills. Patient was admitted for further evaluation and medical management. Past Medical History Anxiety, Anemia, Arthritis, High Lipids, HTN, Thyroid (hypothyroidism), IBS - on Linaclotide Past Surgical History Hysterectomy Family History Reviewed, noncontributory to the management of this case. Past Social History The patient lives at home, denies smoking, alcohol or illicit drugs abuse. Review of Systems Constitutional: Yes: Weakness; No: Fever, Chills, Sweats, Malaise, Other Eyes: No: Pain, Vision change, Conjunctivae inflammation, Eyelid inflammation, Other, Redness ENT: No: Ear pain, Ear discharge, Nose pain, Nose discharge, Nose congestion, Mouth pain, Mouth swelling, Throat pain, Throat swelling, Other Respiratory: No: Cough, Dry, Shortness of breath, SOB with excertion, Wheezing, Hemoptysis, Pleuritic Pain, Sputum, Wheezing, Other Cardiovascular: No: Chest Pain, Palpitations, Orthopnea, Paroxysmal Noc. Dyspnea, Edema, Lt Headedness, Other Gastrointestinal: Nausea, Vomiting, Abdominal Pain, Diarrhea; No: Constipation, Melena, Hematochezia, Other Genitourinary: No Dysuria, No Frequency, No Incontinence, No Hematuria, No Retention, No Other Musculoskeletal: No: other, neck pain, shoulder pain, arm pain, back pain, hand pain, leg pain, foot pain Skin: No: Rash, Lesions, Jaundice, Bruising, Other Neurological: No: Weakness, Numbness, Incoordination, Change in speech, Confusion, Seizures, Other Allergies: Coded Allergies: Droperidol (Verified Allergy, Severe, 08/15/25) Vancomycin (Verified Allergy, Mild, HIVES, 04/03/25) Alprazolam (Verified Allergy, Unknown, 04/13/19) Ketorolac Tromethamine (Verified Allergy, Unknown, 04/13/19) Morphine (Verified Allergy, Unknown, 04/13/19) Levofloxacin (Verified Adverse Reaction, Mild, 04/03/25) Uncoded Allergies: CONTRAST (Allergy, Unknown, 08/15/25) Medications Current Medications Medications Dose Ordered Sig/Dina Route Start Time Stop Time Status Last Admin Dose Admin Piperacillin Sod/ Tazobactam Sod 100 ml @ 25 mls/hr Q8HR IV 10/10/25 14:00 Clonidine HCl 0.1 mg Q4HP PRN PO 10/10/25 11:00 Albuterol 2.5 mg Q4HPRN PRN NEB 10/10/25 11:00 Cancel Ipratropium [place] 0.5 mg Q4HPRN PRN NEB 10/10/25 11:00 Cancel Sodium Chloride 1,000 ml @ 60 mls/hr [id number] IV 10/10/25 11:00 Acetaminophen/ Hydrocodone Bitart 1 tab Q4HP PRN PO 10/10/25 11:00 Hold Ondansetron HCl 4 mg Q4HP PRN IV 10/10/25 11:00 Docusate Sodium 100 mg BIDPRN PRN PO 10/10/25 11:00 Acetaminophen 650 mg Q6HP PRN PO 10/10/25 11:00 Exam Vital Signs Vital Signs Date Time Temp Pulse Resp B/P (MAP) Pulse Ox O2 Delivery O2 Flow Rate FiO2 10/10/25 09:30 106 13 109/63 (78) 100 10/10/25 08:00 98.6 98.6 10/10/25 08:00 Room Air* 0 21 General Appearance: Alert, Oriented X3, Cooperative, No acute distress HEENT: Atraumatic, PERRLA, EOMI, Mucous membr. moist/pink Respiratory: Clear to auscultation, Normal air movement Cardiovascular: Regular rate, Normal S1, Normal S2, No murmurs Abdominal: Normal bowel sounds, Soft, No hepatospenomegaly, No masses, Other (Reports tenderness) Extremities: No clubbing, No cyanosis, No edema, Normal pulses, No tenderness/swelling Skin: No rashes, No breakdown, No significant lesion Neuro: Normal speech, Normal tone, Sensation intact, Cranial nerves 3-12 NL, Reflexes 2+, Other (Generalized weakness) Psych/Mental Status: Mental status NL, Mood NL, Other (Reports anxiety) Labs/Xrays Labs Test 10/10/25 08:22 10/10/25 06:58 10/10/25 03:03 Range/Units Lactic Acid Level 2.1 *H 0.4-2.0 mmol/L POC Glucose 133 H 70-106 mg/dl White Blood Count 18.3 H 4.4-10.8 10^3/uL Red Blood Count 5.31 H 4.0-5.20 10^6/uL Hemoglobin 16.1 12.2-16.2 g/dL Hematocrit 47.9 H 36.0-46.0 % Mean Corpuscular Volume 90.2 80.0-100.0 fL Mean Corpuscular Hemoglobin 30.4 28.0-32.0 pg Mean Corpuscular Hemoglobin Concent 33.7 32.0-36.0 g/dL Red Cell Distribution Width 13.7 11.8-14.3 % Platelet Count 358 140-450 10^3/uL Mean Platelet Volume 8.0 6.9-10.8 fL Neutrophils (%) (Auto) 93.8 H 37.0-80.0 % Lymphocytes (%) (Auto) 2.1 L 10.0-50.0 % Monocytes (%) (Auto) 3.7 0.0-12.0 % Eosinophils (%) (Auto) 0.3 0.0-7.0 % Basophils (%) (Auto) 0.1 0.0-2.0 % Neutrophils # (Auto) 17.2 H 1.6-8.6 10 ^3/uL Lymphocytes # (Auto) 0.4 0.4-5.4 10 ^3/uL Monocytes # (Auto) 0.7 0-1.3 10 ^3/uL Eosinophils # (Auto) 0.1 0-0.8 10 ^3/uL Basophils # (Auto) 0 0-0.2 10 ^3/uL Nucleated Red Blood Cells 0.0 % Sodium Level 139 136-145 mmol/L Potassium Level 3.8 3.5-5.1 mmol/L Chloride Level 107 98-107 mmol/L Carbon Dioxide Level 18 L 20-31 mmol/L Anion Gap 14 5-15 Blood Urea Nitrogen 11 9-23 mg/dL Creatinine 0.54 L 0.550-1.02 mg/dL Glomerular Filtration Rate Calc 115 >90 mL/min BUN/Creatinine Ratio 20.4 H 10.0-20.0 Serum Glucose 133 H 74-106 mg/dL Hemoglobin A1c 5.0 <5.7 % A1C Calcium Level 9.2 8.7-10.4 mg/dL Lipase 35 12-53 U/L Thyroid Stimulating Hormone (TSH) 0.48 L 0.55-4.78 uIU/mL Beta HCG, Quantitative 0.6 L 1.5-4.2 mIU/mL PATIENT: VALERIANO GARCIA ACCT: [id number] UNIT: [id number] : 1980 LOC: ER ROOM / BED: / AGE / SEX: 45 / F ADM STATUS: REG ER SERVICE 0250 ORDERING PHYSICIAN: YOVANNY TOWNSEND MD PROCEDURE(s): ABPL - CT AB PEL WO CON-NO ORAL OR IV REASON: sbo ORDER NUMBER(s): [id number], ACCESSION NUMBER(s): [id number] EXAM: CT CT AB PEL WO CON-NO ORAL OR IV History: sbo Comparison Study: CT ABDOMEN PELVIS WITHOUT on DOS: 05/09/25, CT ABDOMEN PELVIS WITHOUT on DOS: 01/18/25, CT ABD/PEL on DOS: 07/28/23 TECHNIQUE: Multidetector CT of the abdomen and pelvis was performed from lung bases to pubic symphysis. Imaging was performed without IV contrast. Axial, coronal and sagittal multiplanar reformats were obtained from the axial data set by the technologist. Radiation optimization: All CT scans at this facility use at least one of these dose optimization techniques: automated exposure control mA and/or kV adjustment per patient size (includes targeted exams where dose is matched to clinical i ndication) or iterative reconstruction. Radiation Dose Information: CT Dose: CTDI volume is 11.4 mGy. Dose-length product is 687 mGy*cm FINDINGS: Evaluation of solid organs is limited due to lack of intravenous contrast use. Imaged portions of the lung bases appear unremarkable. There is a small hiatal hernia. Liver, gallbladder, spleen, pancreas and adrenal glands appear unremarkable. The kidneys appear symmetric without hydronephrosis. No evidence of bowel obstruction or focal bowel wall thickening. No free fluid, free air, or adenopathy. Appendix not well visualized, however right lower quadrant appears unremarkable. No suspicious osseous lesion. Postsurgical changes L5-S1. IMPRESSION: 1. No acute abdominal or pelvic finding. 2. Small hiatal hernia ORDERING PHYSICIAN: YOVANNY TOWNSEND MD PROCEDURE(s): CXRP - CHEST PORTABLE REASON: leukocytosis ORDER NUMBER(s): [id number], ACCESSION NUMBER(s): [id number] CHEST RADIOGRAPH INDICATION: leukocytosis TECHNIQUE: Single frontal view of the chest was obtained COMPARISON: XY CHEST PORTABLE on DOS: 04/03/25, XY CHEST PORTABLE on DOS: 03/13/25, XR CHEST 1 VIEW on DOS: 10/19/24 IMPRESSION: Heart appears normal in size. The lungs appear clear without focal airspace opacity, effusion, or pneumothorax SEPSIS Sepsis Screen Date sepsis recognized/suspect: Oct 10, 2025 Time Sepsis recognized/suspect: 0420 Recent Procedure: No On Antibiotic Therapy: No Respiratory Rate >20: No Heart Rate >90: No Temp<36 C (96.8 F) or >38.3 C: No SBP <90 or MAP <65 mmHG: No New Acute Mental Status Change: No Is the patient on CPAP, BIPAP,: No Physician Orders Urinalysis (10/10/25 04:31) Chest Portable (10/10/25 04:31) Accucheck (10/10/25 04:31) Blood Culture (10/10/25 04:31) Notify Md If Map <65 Or Bp<90 (10/10/25 04:31) If Map<65 Start Vasopressor (10/10/25 04:31) Sepsis Reassesment After Fluid (10/10/25 05:31) * Picc Line Consult (10/10/25 05:58) Piperacillin-Tazob 3.375gm (Zosyn 3.375g (10/10/25 14:00) Clonidine Hcl Tablet (Catapres Tablet) (10/10/25 11:00) Allergies (10/10/25 10:56) Code Status (10/10/25 10:56) Sodium Chloride 0.9% (10/10/25 11:00) Oxygen Per Hour (10/10/25 10:56) Hydrocodone-Acet 5/325mg Tab ([place] 5/32 (10/10/25 11:00) Ondansetron Hcl (Zofran) (10/10/25 11:00) Docusate Sodium Capsule (Colace Capsule) (10/10/25 11:00) Complete Blood Count (10/11/25 04:00) Comprehensive Metabolic Panel (10/11/25 04:00) Condition: Serious (10/10/25 10:56) Acetaminophen Tablet (Tylenol Tablet) (10/10/25 11:00) Clear Liq Diet (10/10/25 Lunch) Bedrest With Bathroom Privileg (10/10/25 10:56) Sequential Compression Device (10/10/25 ) Vital Signs Date Time Temp Pulse Resp B/P (MAP) Pulse Ox O2 Delivery O2 Flow Rate FiO2 10/10/25 09:30 106 13 109/63 (78) 100 10/10/25 09:00 117/78 10/10/25 08:00 98.6 105 14 117/78 (91) 100 98.6 10/10/25 08:00 105 14 100 Room Air* 0 21 10/10/25 06:00 Room Air* 0 21 10/10/25 06:00 99.3 104 18 131/89 (103) 98 99.3 10/10/25 03:55 98.3 123 18 113/83 (93) 98 98.3 Laboratory Tests Test 10/10/25 03:03 10/10/25 06:22 10/10/25 08:22 White Blood Count 18.3 10^3/uL (4.4-10.8) H Lactic Acid Level 2.5 mmol/L (0.4-2.0) *H 2.1 mmol/L (0.4-2.0) *H Medications Medications Dose Ordered Sig/Dina Route Start Time Stop Time Status Last Admin Dose Admin Cefepime HCl 50 ml @ 12.5 mls/hr ONCE ONCE IV 10/10/25 04:45 10/10/25 08:44 WV 10/10/25 11:00 12.5 MLS/HR Fentanyl Citrate 25 mcg ONCE ONCE IV 10/10/25 06:00 10/10/25 06:01 WV 10/10/25 09:00 25 MCG Lactated Ringer's 1,800 ml @ 1,800 mls/hr ONCE ONCE IV 10/10/25 04:45 10/10/25 05:44 WV 10/10/25 07:54 1,800 MLS/HR Ondansetron HCl 4 mg ONCE ONCE IV 10/10/25 03:00 10/10/25 03:01 WV 10/10/25 05:12 4 MG Ondansetron HCl 4 mg ONCE ONCE IV 10/10/25 08:15 10/10/25 08:16 WV 10/10/25 08:59 4 MG Ondansetron HCl 8 mg ONCE ONCE PO 10/10/25 06:00 10/10/25 06:01 WV 10/10/25 06:02 8 MG Prochlorperazine Edisylate 25 mg ONCE ONCE IV 10/10/25 11:00 10/10/25 11:01 WV 10/10/25 11:09 25 MG Sodium Chloride 1,000 ml @ 1,000 mls/hr Q1H ONCE IV 10/10/25 03:00 10/10/25 03:59 WV 10/10/25 05:12 1,000 MLS/HR Reassessment Post Fluid Date of Reassessment: Oct 10, 2025 Time of Reassessment: 05:50 Pulse Location: Radial Pulse Strength: Normal Capillary Refill Exam: < 3 seconds Skin Temperature: Warm Skin Tugor: WNL Skin Color: WNL Fingernail Color: WNL Assessment/Plan Assessment/Plan Sepsis, unspecified organisms Acute abdominal pain Intractable nausea and vomiting Generalized weakness Plan 1. Admit to telemetry unit 2. Breathing treatment 3. Pain control management 4. IV antibiotic management 5. Management of fluids and electrolytes 6. Consultation for hospitalist 7. Diagnostic test abdomen/pelvis CT 8. DVT prophylaxis-on SCDs 9. Repeat labs CBC, CMP in a.m. 10. Home medication reviewed and reconciled 11. Continue with current medical management 12. Treatment plan discussed with patient and RN. Patient verbalized understanding. Plan discussed with: Patient, Other (RN) My Orders Orders - MAGUE FUENTES DNP Procedure Category Date Status Time Piperacillin-Tazob PHA 10/10/25 In Process 3.375gm (Zosyn 3.375g 14:00 Clonidine Hcl Tablet PHA 10/10/25 In Process (Catapres Tablet) 11:00 Allergies JUAN MIGUEL 10/10/25 In Process 10:56 Code Status CODE 10/10/25 Transmitted 10:56 Sodium Chloride 0.9% PHA 10/10/25 In Process 11:00 Oxygen Per Hour RT 10/10/25 Transmitted 10:56 Hydrocodone-Acet PHA 10/10/25 In Process 5/325mg Tab ([place] 11:00 Ondansetron Hcl PHA 10/10/25 In Process (Zofran) 11:00 Docusate Sodium PHA 10/10/25 In Process Capsule (Colace 11:00 Complete Blood Count LAB 10/11/25 Verified 04:00 Comprehensive LAB 10/11/25 Verified Metabolic Panel 04:00 Condition: Serious JUAN MIGUEL 10/10/25 In Process 10:56 Acetaminophen Tablet PHA 10/10/25 In Process (Tylenol Tablet) 11:00 Clear Liq Diet DIET 10/10/25 Transmitted Lunch Bedrest With Bathroom JUAN MIGUEL 10/10/25 In Process Privileg 10:56 Sequential JUAN MIGUEL 10/10/25 In Process Compression Device Problem List: (1) Sepsis, unspecified organism (2) Acute abdominal pain (3) Intractable nausea and vomiting (4) Generalized weakness Date of Service: Oct 10, 2025 Billing Provider: MAGUE FUENTES DNP Common Visit Codes: [id number] INP/OBS CARE (HIGH) MAGUE FUENTES DNP Oct 10, 2025 11:48
[2025-10-10] MEDS ORDERED: NITROGLYCERIN 0.4 MG SL TAB SL PRN (12:00)
[2025-10-10] MEDS ORDERED: MORPHINE SULFATE INJ 2 MG/ml SYRG IV PRN (12:00)
[2025-10-10] MEDS: SODIUM CHLORIDE 0.9% 1,000 ML IV SCH (12:13)
[2025-10-10 12:49] LABS: Urine Protein, UAD TRACE (Negative)
[2025-10-10] MEDS: LORazepam 0.5 MG TAB PO PRN (13:31)
[2025-10-10 13:44] VITALS: BP 125/77; PULSE 108; RESP 17; TEMP 98.6; O2SAT 99
[2025-10-10] MEDS: PIPERACILLIN-TAZOB 3.375GM 100 ML IV SCH (14:10)
[2025-10-10 16:42] VITALS: BP 119/72; PULSE 116; RESP 17; TEMP 99.2; O2SAT 98
[2025-10-10] MEDS: ONDANSETRON HCL 4 MG/2 ML VIAL IV PRN (18:31)
[2025-10-10] MEDS: ACETAMINOPHEN 325 MG TAB PO PRN (18:31)
[2025-10-10 22:02] VITALS: BP 113/65; PULSE 102; RESP 18; TEMP 98.5; O2SAT 97
[2025-10-11] VITALS (7 sets, daily range): BP systolic 98–132; BP diastolic 64–82; PULSE 63–79; RESP 17–20; TEMP 97.7–99.9; O2SAT 97–99
[2025-10-11 07:46] LABS: Alanine Aminotransferase 17 U/L (7-40); Albumin 3.4 g/dL (3.2-4.8); Anion Gap 9 (5-15); BUN/Creatinine Ratio 10.4 (10.0-20.0); Carbon Dioxide 23 mmol/L (20-31); Glucose 96 mg/dL (74-106); Sodium 140 mmol/L (136-145)
[2025-10-11 07:47] LABS: Alkaline Phosphatase 42 U/L (46-116); Bilirubin, Total 0.4 mg/dL (0.2-1.0); Blood Urea Nitrogen 7 mg/dL (9-23); Calcium 8.2 mg/dL (8.7-10.4); Chloride 108 mmol/L (98-107); Potassium 3.3 mmol/L (3.5-5.1); Total Protein 5.6 g/dL (5.7-8.2)
[2025-10-11 14:06] LABS: Hematocrit 40.1 % (36.0-46.0); Hemoglobin 13.7 g/dL (12.2-16.2); Mean Corpuscular Hemoglobin 30.4 pg (28.0-32.0); Mean Corpuscular Volume 89.2 fL (80.0-100.0); Nucleated Red Blood Cells % 0.3 %
[2025-10-11] MEDS ORDERED: MORPHINE SULFATE 4 MG/ML SYR/VIAL IV PRN (16:45)
--- NOTE | 2025-10-11 17:08 | DVHPN2 ---
Subjective Patient continues to report having some abdominal pain, nausea with periods of vomiting this a.m.. Reviewed: Care Plan, H&P, Labs, Medications Changes from previous H/P or p: No Changes General: Per HPI Eyes: No Pain, No Vision change, No Conjunctivae inflammation, No Eyelid inflammation, No Other, No Redness ENT: No Ear pain, No Ear discharge, No Nose pain, No Nose discharge, No Nose congestion, No Mouth pain, No Mouth swelling, No Throat pain, No Throat swelling, No Other Cardiovascular: No Chest Pain, No Palpitations, No Orthopnea, No Paroxysmal Noc. Dyspnea, No Edema, No Lt Headedness, No Other Respiratory: No Cough, No Dry, No Shortness of breath, No SOB with excertion, No Wheezing, No Hemoptysis, No Pleuritic Pain, No Sputum, No Other Gastrointestinal: Nausea, Vomiting, Abdominal Pain, Diarrhea; No Constipation, No Melena, No Hematochezia, No Other Genitourinary: No Dysuria, No Frequency, No Incontinence, No Hematuria, No Retention, No Other Musculoskeletal: No other, No neck pain, No shoulder pain, No arm pain, No back pain, No hand pain, No leg pain, No foot pain Skin: No Rash, No Lesions, No Jaundice, No Bruising, No Other Objective Vitals Vital Signs Date Time Temp Pulse Resp B/P (MAP) Pulse Ox O2 Delivery O2 Flow Rate FiO2 10/11/25 13:15 98.7 71 20 114/79 (91) 99 98.7 10/11/25 08:10 Room Air* 0 21 Intake/Output Intake and Output 10/11/25 07:00 Intake Total 3717.5 ml Balance 3717.5 ml Intake Oral 1325 ml IV Total 2392.5 ml # Voids 4 General Appearance: Alert, Oriented X3, Cooperative, mild distress HEENT: Atraumatic, PERRLA Lungs: Clear to auscultation, Normal air movement Cardiovascular: Normal S1, Normal S2 Abdomen: Normal bowel sounds, Soft, No tenderness, No hepatospenomegaly Genitourinary: No Apparent Abnormalities Musculoskeletal: Normal sensory function, Normal motor function Neuro: Normal gait, Normal speech Skin: Dry, Intact Psych/Mental Status: Mental status NL, Mood NL Medications Current Medications Medications Dose Ordered Sig/Dina Route Start Time Stop Time Status Last Admin Dose Admin Piperacillin Sod/ Tazobactam Sod 100 ml @ 25 mls/hr Q8HR IV 10/10/25 14:00 10/11/25 14:18 25 MLS/HR Clonidine HCl 0.1 mg Q4HP PRN PO 10/10/25 11:00 Albuterol 2.5 mg Q4HPRN PRN NEB 10/10/25 11:00 Cancel Ipratropium [place] 0.5 mg Q4HPRN PRN NEB 10/10/25 11:00 Cancel Acetaminophen/ Hydrocodone Bitart 1 tab Q4HP PRN PO 10/10/25 11:00 Hold Ondansetron HCl 4 mg Q4HP PRN IV 10/10/25 11:00 10/11/25 12:28 4 MG Docusate Sodium 100 mg BIDPRN PRN PO 10/10/25 11:00 Acetaminophen 650 mg Q6HP PRN PO 10/10/25 11:00 10/11/25 12:27 650 MG Nitroglycerin 0.4 mg Q5MINP PRN SL 10/10/25 12:00 Lorazepam 0.5 mg Q8HPRN PRN PO 10/10/25 12:15 10/10/25 13:31 0.5 MG Potassium Chloride/Sodium Chloride 1,000 ml @ 75 mls/hr [id number] IV 10/11/25 15:15 Pantoprazole Sodium 40 mg BID IV 10/11/25 22:00 Morphine Sulfate 2 mg Q4HPRN PRN IV 10/11/25 16:45 Laboratory Results Laboratory Tests 10/11/25 06:24 10/11/25 13:30 Chemistry Test 10/11/25 06:24 Albumin 3.4 g/dL (3.2-4.8) Calcium Level 8.2 mg/dL (8.7-10.4) L Total Protein 5.6 g/dL (5.7-8.2) L LFT Test 10/11/25 06:24 Alanine Aminotransferase (ALT) 17 U/L (7-40) Alkaline Phosphatase 42 U/L (46-116) L Aspartate Amino Transferase (AST) 15 U/L (13-40) Total Bilirubin 0.4 mg/dL (0.2-1.0) Urinalysis Test 10/10/25 12:30 Urine Color Yellow (Yellow) Urine Clarity Clear (Clear) Urine pH 7.0 (5.0-9.0) Urine Specific [place] 1.027 (1.001-1.035) Urine Protein Trace (Negative) H Urine Ketones 3+ (Negative) H Urine Blood Negative /uL (Negative) Urine Nitrite Negative (Negative) Urine Bilirubin Negative (Negative) Urine Urobilinogen Normal mg/dL (Negative) Urine Leukocyte Esterase Negative /uL (Negative) Urine RBC 5 /hpf (0 - 4) Urine Microscopic WBC 1 /HPF (0-5) Urine Squamous Epithelial Cells Few /hpf (<5) Urine Bacteria Few /hpf (None Seen) H Urine Mucus Few (None Seen) Urine Glucose Normal mg/dL (Normal) Microbiology Microbiology Date/Time Source Procedure Growth Status 10/10/25 08:22 Blood Blood Culture - Preliminary NO GROWTH AFTER 24 HOURS OF INCUBATION. Resulted Labs and/or images reviewed: Labs reviewed by me, Image(s) reviewed by me Assessment/Plan Assessment/Plan Impression: -acute abdominal pain -intractable nausea and vomiting -leukocytosis, rule out sepsis -lupus -rheumatoid arthritis -history of Lyme disease -hypokalemia -recent abdominal mass removal Plan: -patient has continuous nausea and vomiting with the abdominal pain. GI consultation placed -continue clear liquid diet -pain management: [facility] [place] morphine, add Dilaudid -antiemetics -potassium replacement -change IV fluids to NS with 20 mEq of potassium chloride -repeat labs in a.m., check ESR, CRP Total time spent with patient discussing and formulating plan of care: 35 minutes. This medical document was created using an electronic medical record system with [employer] dictation system. Although this document has been carefully reviewed, there may still be some phonetic and typographical errors. These areas are purely typographical due to imperfections of the software programs, and do not reflect any compromise in the patient's medical care. Plan discussed with: Patient, Other (RN) My Orders Orders - SHERITA OATES SHIELD RUNNER Procedure Category Date Status Time Sod Chl 0.45% With PHA 10/11/25 In Process 20meq Kcl 15:15 Erythrocyte LAB 10/11/25 In Process Sedimentation Rate 16:25 C-Reactive Protein LAB 10/11/25 In Process 16:25 Pantoprazole PHA 10/11/25 In Process (Protonix) 22:00 * Gi Dvh Counter Installer CONS 10/11/25 Transmitted 16:26 Basic Metabolic Panel LAB 10/12/25 Verified 04:00 Magnesium LAB 10/12/25 Verified 04:00 Morphine Sulfate PHA 10/11/25 In Process Injection 16:45 Hydromorphone PHA 10/11/25 Verified Injection (Dilaudid 17:15 Date of Service: Oct 11, 2025 Billing Provider: SHERITA OATES NP Common Visit Codes: [id number] INP/OBS CARE(HIGH) SHERITA OATES NP Oct 11, 2025 17:08
[2025-10-11] MEDS: SOD CHL 0.45% WITH 20MEQ KCL 1,000 ML IV SCH (17:44)
[2025-10-11] MEDS: HYDROmorphone HCL 2 MG/ML VL/or syr IV PRN (17:47)
[2025-10-11] MEDS: PANTOPRAZOLE 40 MG/10 ML VIAL INJ IV SCH (21:35)
[2025-10-12] VITALS (9 sets, daily range): BP systolic 108–131; BP diastolic 70–87; PULSE 63–84; RESP 15–20; TEMP 98.5–99.2; O2SAT 95–99
[2025-10-12 06:31] LABS: Chloride 107 mmol/L (98-107); Potassium 3.5 mmol/L (3.5-5.1); Sodium 141 mmol/L (136-145)
[2025-10-12 06:32] LABS: Anion Gap 10 (5-15); Carbon Dioxide 24 mmol/L (20-31)
[2025-10-12 06:37] LABS: Glucose 84 mg/dL (74-106)
[2025-10-12 06:38] LABS: Magnesium 2.1 mg/dL (1.6-2.6)
[2025-10-12 06:48] LABS: BUN/Creatinine Ratio 7.5 (10.0-20.0); Blood Urea Nitrogen < 5 mg/dL (9-23); Calcium 7.9 mg/dL (8.7-10.4)
--- NOTE | 2025-10-12 12:58 | DVHPN2 ---
Subjective Patient continues to report having some abdominal pain, nausea with periods of vomiting this a.m.. Reviewed: Care Plan, H&P, Labs, Medications Changes from previous H/P or p: No Changes General: Per HPI Eyes: No Pain, No Vision change, No Conjunctivae inflammation, No Eyelid inflammation, No Other, No Redness ENT: No Ear pain, No Ear discharge, No Nose pain, No Nose discharge, No Nose congestion, No Mouth pain, No Mouth swelling, No Throat pain, No Throat swelling, No Other Cardiovascular: No Chest Pain, No Palpitations, No Orthopnea, No Paroxysmal Noc. Dyspnea, No Edema, No Lt Headedness, No Other Respiratory: No Cough, No Dry, No Shortness of breath, No SOB with excertion, No Wheezing, No Hemoptysis, No Pleuritic Pain, No Sputum, No Other Gastrointestinal: Nausea, Vomiting, Abdominal Pain, Diarrhea; No Constipation, No Melena, No Hematochezia, No Other Genitourinary: No Dysuria, No Frequency, No Incontinence, No Hematuria, No Retention, No Other Musculoskeletal: No other, No neck pain, No shoulder pain, No arm pain, No back pain, No hand pain, No leg pain, No foot pain Skin: No Rash, No Lesions, No Jaundice, No Bruising, No Other Objective Vitals Vital Signs Date Time Temp Pulse Resp B/P (MAP) Pulse Ox O2 Delivery O2 Flow Rate FiO2 10/12/25 09:19 84 18 107/75 10/12/25 09:13 98.5 97 98.5 10/12/25 08:20 Room Air* 0 21 Intake/Output Intake and Output 10/12/25 07:00 Intake Total 1225 ml Balance 1225 ml Intake Oral 500 ml IV Total 725 ml # Voids 6 General Appearance: Alert, Oriented X3, Cooperative, mild distress HEENT: Atraumatic, PERRLA Lungs: Clear to auscultation, Normal air movement Cardiovascular: Normal S1, Normal S2 Abdomen: Normal bowel sounds, Soft, No tenderness, No hepatospenomegaly Genitourinary: No Apparent Abnormalities Musculoskeletal: Normal sensory function, Normal motor function Neuro: Normal gait, Normal speech Skin: Dry, Intact Psych/Mental Status: Mental status NL, Mood NL Medications Current Medications Medications Dose Ordered Sig/Dina Route Start Time Stop Time Status Last Admin Dose Admin Piperacillin Sod/ Tazobactam Sod 100 ml @ 25 mls/hr Q8HR IV 10/10/25 14:00 10/12/25 06:06 25 MLS/HR Clonidine HCl 0.1 mg Q4HP PRN PO 10/10/25 11:00 Albuterol 2.5 mg Q4HPRN PRN NEB 10/10/25 11:00 Cancel Ipratropium [place] 0.5 mg Q4HPRN PRN NEB 10/10/25 11:00 Cancel Acetaminophen/ Hydrocodone Bitart 1 tab Q4HP PRN PO 10/10/25 11:00 Hold Ondansetron HCl 4 mg Q4HP PRN IV 10/10/25 11:00 10/12/25 09:18 4 MG Docusate Sodium 100 mg BIDPRN PRN PO 10/10/25 11:00 Acetaminophen 650 mg Q6HP PRN PO 10/10/25 11:00 10/11/25 12:27 650 MG Nitroglycerin 0.4 mg Q5MINP PRN SL 10/10/25 12:00 Lorazepam 0.5 mg Q8HPRN PRN PO 10/10/25 12:15 10/10/25 13:31 0.5 MG Potassium Chloride/Sodium Chloride 1,000 ml @ 75 mls/hr [id number] IV 10/11/25 15:15 10/11/25 17:44 75 MLS/HR Pantoprazole Sodium 40 mg BID IV 10/11/25 22:00 10/12/25 09:18 40 MG Hydromorphone HCl 0.25 mg Q4HPRN PRN IV 10/11/25 17:15 10/12/25 09:19 0.25 MG Laboratory Results Laboratory Tests 10/11/25 13:30 10/12/25 05:09 Chemistry Test 10/12/25 05:09 Calcium Level 7.9 mg/dL (8.7-10.4) L Magnesium Level 2.1 mg/dL (1.6-2.6) Urinalysis Test 10/10/25 12:30 Urine Color Yellow (Yellow) Urine Clarity Clear (Clear) Urine pH 7.0 (5.0-9.0) Urine Specific [place] 1.027 (1.001-1.035) Urine Protein Trace (Negative) H Urine Ketones 3+ (Negative) H Urine Blood Negative /uL (Negative) Urine Nitrite Negative (Negative) Urine Bilirubin Negative (Negative) Urine Urobilinogen Normal mg/dL (Negative) Urine Leukocyte Esterase Negative /uL (Negative) Urine RBC 5 /hpf (0 - 4) Urine Microscopic WBC 1 /HPF (0-5) Urine Squamous Epithelial Cells Few /hpf (<5) Urine Bacteria Few /hpf (None Seen) H Urine Mucus Few (None Seen) Urine Glucose Normal mg/dL (Normal) Microbiology Microbiology Date/Time Source Procedure Growth Status 10/10/25 08:22 Blood Blood Culture - Preliminary NO GROWTH AFTER 48 HOURS OF INCUBATION. Resulted Labs and/or images reviewed: Labs reviewed by me, Image(s) reviewed by me Assessment/Plan Assessment/Plan Impression: -acute abdominal pain -intractable nausea and vomiting -leukocytosis, rule out sepsis -lupus -rheumatoid arthritis -history of Lyme disease -hypokalemia -recent abdominal mass removal Plan: GI consultation: Plans for possible EGD today -continue clear liquid diet -pain management: Continue IV Dilaudid given hospital is out of morphine -antiemetics -potassium replacement -continue IV fluids Total time spent with patient discussing and formulating plan of care: 35 minutes. This medical document was created using an electronic medical record system with [employer] dictation system. Although this document has been carefully reviewed, there may still be some phonetic and typographical errors. These areas are purely typographical due to imperfections of the software programs, and do not reflect any compromise in the patient's medical care. Plan discussed with: Patient, Other (RN) My Orders Orders - SHERITA OATES NP Procedure Category Date Status Time Sod Chl 0.45% With PHA 10/11/25 In Process 20meq Kcl 15:15 Pantoprazole PHA 10/11/25 In Process (Protonix) 22:00 * Gi D[facility] Internal Grinder CONS 10/11/25 Transmitted 16:26 Hydromorphone PHA 10/11/25 In Process Injection (Dilaudid 17:15 Date of Service: Oct 12, 2025 Billing Provider: SHERITA OATES NP Common Visit Codes: [id number] INP/OBS CARE(HIGH) SHERITA OATES NP Oct 12, 2025 12:58
[2025-10-12] MEDS ORDERED: LIDOCAINE VISCOUS 2% 15ML UD ONE (13:22)
[2025-10-12] MEDS ORDERED: MIDAZOLAM HCL 2MG/2ML 2ml VIAL (1mg/ml) ONE (13:35)
[2025-10-12] MEDS ORDERED: fentaNYL CITRATE 100 MCG/2 ML VL ONE (13:35)
[2025-10-12] MEDS ORDERED: PROPOFOL 10 MG/ML 20 ML IV ONE (13:50)
--- NOTE | 2025-10-12 14:19 | DVHINCON2 ---
GI Consult Consult Note GI consult note Date of Consultation: 10/12/2025 Chief Complaint: Abdominal pain Referring Physician: Erin MENDEZ H&P: 45-year-old female with past medical history of anxiety, anemia, arthritis, hyperlipidemia, hypertension, IBS, thyroid disease, lupus, RA, Lyme disease admitted with complains of abdominal pain, associated with nausea vomiting and diarrhea. Patient denies hematemesis no melena or red blood in stool. Symptoms started about a week ago and worsened last Saturday. Patient also admits to having decreased appetite because anything she even eats or drinks causing worsening of her nausea. Admits to having improvement with the diarrheal symptoms. Patient is status post EGD colonoscopy about 6-7 years ago within normal limits per patient. Patient is status post hernia repair for possible mass which was benign August 23 by a surgeon in [place]. Patient denies any blood thinners Past Medical History: As above Past Surgical History: Hysterectomy Social History: NO smoking, drinking ETOH and use of illegal drugs. Family History: Noncontributory Review of Systems: Constitutional: no fever, chill, weight loss HEENT: no eye pain, no hearing loss, no oral lesion, no scleral icterus Heart: no chest pain, no chest pressure Lung: no cough, no dyspnea with exertion Abdomen: see HPI Physical exam: General: NAD, AAOX3 Chest: lung landa clear to auscultation Heart: RRR, no murmur Abdomen: non-distended, no tenderness to palpation, +BS Labs: Labs Test 10/12/25 05:09 10/11/25 13:30 10/11/25 06:24 10/10/25 12:30 Range/Units Sodium Level 141 136-145 mmol/L Potassium Level 3.5 3.5-5.1 mmol/L Chloride Level 107 98-107 mmol/L Carbon Dioxide Level 24 20-31 mmol/L Anion Gap 10 5-15 Blood Urea Nitrogen < 5 L 9-23 mg/dL Creatinine 0.67 0.550-1.02 mg/dL Glomerular Filtration Rate Calc 109 >90 mL/min BUN/Creatinine Ratio 7.5 L 10.0-20.0 Serum Glucose 84 74-106 mg/dL Calcium Level 7.9 L 8.7-10.4 mg/dL Magnesium Level 2.1 1.6-2.6 mg/dL White Blood Count 3.1 #L 4.4-10.8 10^3/uL Red Blood Count 4.49 4.0-5.20 10^6/uL Hemoglobin 13.7 12.2-16.2 g/dL Hematocrit 40.1 # 36.0-46.0 % Mean Corpuscular Volume 89.2 80.0-100.0 fL Mean Corpuscular Hemoglobin 30.4 28.0-32.0 pg Mean Corpuscular Hemoglobin Concent 34.1 32.0-36.0 g/dL Red Cell Distribution Width 13.4 11.8-14.3 % Platelet Count 263 140-450 10^3/uL Mean Platelet Volume 8.1 6.9-10.8 fL Neutrophils (%) (Auto) 55.0 37.0-80.0 % Lymphocytes (%) (Auto) 29.2 10.0-50.0 % Monocytes (%) (Auto) 13.3 H 0.0-12.0 % Eosinophils (%) (Auto) 1.7 0.0-7.0 % Basophils (%) (Auto) 0.8 0.0-2.0 % Neutrophils # (Auto) 1.7 1.6-8.6 10 ^3/uL Lymphocytes # (Auto) 0.9 0.4-5.4 10 ^3/uL Monocytes # (Auto) 0.4 0-1.3 10 ^3/uL Eosinophils # (Auto) 0.1 0-0.8 10 ^3/uL Basophils # (Auto) 0 0-0.2 10 ^3/uL Nucleated Red Blood Cells 0.3 % Erythrocyte Sedimentation Rate 10 0-20 mm/hr Total Bilirubin 0.4 0.2-1.0 mg/dL Aspartate Amino Transferase (AST) 15 13-40 U/L Alanine Aminotransferase (ALT) 17 7-40 U/L Alkaline Phosphatase 42 L 46-116 U/L C-Reactive Protein High Sensitivity 5.59 H <1.0 mg/dL Total Protein 5.6 L 5.7-8.2 g/dL Albumin 3.4 3.2-4.8 g/dL Urine Color Yellow Yellow Urine Clarity Clear Clear Urine pH 7.0 5.0-9.0 Urine Specific [place] 1.027 1.001-1.035 Urine Protein Trace H Negative Urine Ketones 3+ H Negative Urine Blood Negative Negative /uL Urine Nitrite Negative Negative Urine Bilirubin Negative Negative Urine Urobilinogen Normal Negative mg/dL Urine Leukocyte Esterase Negative Negative /uL Urine RBC 5 0 - 4 /hpf Urine Microscopic WBC 1 0-5 /HPF Urine Squamous Epithelial Cells Few <5 /hpf Urine Bacteria Few H None Seen /hpf Urine Mucus Few None Seen Urine Glucose Normal Normal mg/dL Test 10/10/25 08:22 10/10/25 06:58 10/10/25 03:03 Range/Units Lactic Acid Level 2.1 *H 0.4-2.0 mmol/L POC Glucose 133 H 70-106 mg/dl Hemoglobin A1c 5.0 <5.7 % A1C Lipase 35 12-53 U/L Thyroid Stimulating Hormone (TSH) 0.48 L 0.55-4.78 uIU/mL Beta HCG, Quantitative 0.6 L 1.5-4.2 mIU/mL Microbiology Date/Time Source Procedure Growth Status 10/10/25 08:22 Blood Blood Culture - Preliminary NO GROWTH AFTER 48 HOURS OF INCUBATION. Resulted Imaging: CT abdomen pelvis IMPRESSION: 1. No acute abdominal or pelvic finding. 2. Small hiatal hernia Assessment: Abdominal pain Intractable nausea and vomiting History of lupus, rheumatoid arthritis and Lyme disease Status post abdominal mass removal August 23, 2025 Plan: Discussed with Dr. Garcia - Pt will be scheduled for an EGD today. Pt was informed of the risks (bleeding, infection, perforation, reaction to sedation medications and cardiopulmonary arrest) and benefit and is agreeable to undergo the procedures. Plan discussed with patient and RN Thank you for this consult Date of Service: Oct 12, 2025 Billing Provider: GLENNY RESTREPO Common Visit Codes: CONSULT ONLY Consultation Codes: [id number] CONSULT <60MIN GLENNY RESTREPO Oct 12, 2025 14:19
[2025-10-12 17:41] LABS: INR 1.01 (0.9-1.15); Prothrombin Time 10.7 sec (9.3-11.8)
--- NOTE | 2025-10-12 22:34 | DVHOP2 ---
Operative Report DATE OF OPERATION: 10/12/25 PROCEDURE: Upper Endoscopy with biopsy. PREOPERATIVE INDICATION: The patient is a 45 -year-old female undergoing endoscopy for nausea and vomiting and abdominal pain POSTOPERATIVE DIAGNOSES: 1. Patient had a 1-2 cm sliding-type hiatal hernia with slightly irregular squamocolumnar junction minimal grade a erosive esophagitis 2. Mild gastritis involving the antrum and body of the stomach otherwise normal examination up to the 2nd and 3rd part of the duodenum PROCEDURE PERFORMED BY: Richard Garcia GI NURSE: Gopi SCOPE: Olympus videoendoscope. ASA CLASS: 2 PREOPERATIVE MEDICATIONS: Mac sedationDr. Rico PROCEDURE IN DETAIL: After obtaining an informed consent, the patient was placed on left lateral decubitus position. The patient was then sedated with the above medications. A bite block was placed between her teeth. The endoscope was then passed through the oropharynx, into the esophagus, and through the stomach and pylorus up to the second and third part of the duodenum. The endoscope was then withdrawn. The 2nd and 3rd part of the duodenal were normal. Duodenal biopsies were obtained. The pre-pyloric area antrum and body showed mild gastritis. Gastric biopsies were obtained. On retroflexion the fundus cardia and angularis were normal. The endoscope was then withdrawn into distal esophagus She had a 1-2 cm sliding-type hiatal hernia with slightly irregular squamocolumnar junction grade a erosive esophagitis. GE junction biopsies were obtained .The remaining distal and proximal esophagus and oropharynx were unremarkable The patient tolerated the procedure well without difficulty. COMPLICATIONS : None SPECIMENS: Duodenal biopsies Gastric biopsies GE junction biopsies DISPOSITION: Transfer back to the floor Stable PLAN: 1. Await for biopsy result 2. Will place pt on Protonix 40 mg bid p.o. 3. Carafate suspension 1 g p.o. twice a day 4. Resume GI soft diet advance as tolerated 6. Outpatient follow up with GI Services to review previous colonoscopy and discuss elective screening or surveillance colonoscopy RICHARD GARCIA MD Oct 12, 2025 22:34
[2025-10-13] VITALS (8 sets, daily range): BP systolic 110–125; BP diastolic 59–87; PULSE 57–91; RESP 16–20; TEMP 97.2–98.8; O2SAT 95–99
[2025-10-13] MEDS: SUCRALFATE 1 GM/10 ML ORAL SUSP PO SCH (05:49)
[2025-10-13] MEDS ORDERED: PANT40TA2 PO (10:22)
[2025-10-13] MEDS ORDERED: SUCR1TAB31 OR (10:22)
[2025-10-13] MEDS ORDERED: ZOFR4T PO (10:22)
--- NOTE | 2025-10-13 10:29 | DVHDS2 ---
Discharge Summary Date of Admission Oct 10, 2025 at 11:47 Date of Discharge: Oct 13, 2025 Admitting Diagnosis Sepsis, unidentified organism Labs/Diagnostic Data: Laboratory Results Test 10/12/25 16:35 10/12/25 05:09 10/11/25 13:30 10/11/25 06:24 Prothrombin Time 10.7 sec (9.3-11.8) Prothrombin Time INR 1.01 (0.9-1.15) Sodium Level 141 mmol/L (136-145) Potassium Level 3.5 mmol/L (3.5-5.1) Chloride Level 107 mmol/L (98-107) Carbon Dioxide Level 24 mmol/L (20-31) Anion Gap 10 (5-15) Blood Urea Nitrogen < 5 mg/dL (9-23) Creatinine 0.67 mg/dL (0.550-1.02) Glomerular Filtration Rate Calc 109 mL/min (>90) BUN/Creatinine Ratio 7.5 (10.0-20.0) Serum Glucose 84 mg/dL (74-106) Calcium Level 7.9 mg/dL (8.7-10.4) Magnesium Level 2.1 mg/dL (1.6-2.6) White Blood Count 3.1 10^3/uL (4.4-10.8) Red Blood Count 4.49 10^6/uL (4.0-5.20) Hemoglobin 13.7 g/dL (12.2-16.2) Hematocrit 40.1 % (36.0-46.0) Mean Corpuscular Volume 89.2 fL (80.0-100.0) Mean Corpuscular Hemoglobin 30.4 pg (28.0-32.0) Mean Corpuscular Hemoglobin Concent 34.1 g/dL (32.0-36.0) Red Cell Distribution Width 13.4 % (11.8-14.3) Platelet Count 263 10^3/uL (140-450) Mean Platelet Volume 8.1 fL (6.9-10.8) Neutrophils (%) (Auto) 55.0 % (37.0-80.0) Lymphocytes (%) (Auto) 29.2 % (10.0-50.0) Monocytes (%) (Auto) 13.3 % (0.0-12.0) Eosinophils (%) (Auto) 1.7 % (0.0-7.0) Basophils (%) (Auto) 0.8 % (0.0-2.0) Neutrophils # (Auto) 1.7 10 ^3/uL (1.6-8.6) Lymphocytes # (Auto) 0.9 10 ^3/uL (0.4-5.4) Monocytes # (Auto) 0.4 10 ^3/uL (0-1.3) Eosinophils # (Auto) 0.1 10 ^3/uL (0-0.8) Basophils # (Auto) 0 10 ^3/uL (0-0.2) Nucleated Red Blood Cells 0.3 % Erythrocyte Sedimentation Rate 10 mm/hr (0-20) Total Bilirubin 0.4 mg/dL (0.2-1.0) Aspartate Amino Transferase (AST) 15 U/L (13-40) Alanine Aminotransferase (ALT) 17 U/L (7-40) Alkaline Phosphatase 42 U/L (46-116) C-Reactive Protein High Sensitivity 5.59 mg/dL (<1.0) Total Protein 5.6 g/dL (5.7-8.2) Albumin 3.4 g/dL (3.2-4.8) Test 10/10/25 12:30 10/10/25 08:22 10/10/25 06:58 10/10/25 03:03 Urine Color Yellow (Yellow) Urine Clarity Clear (Clear) Urine pH 7.0 (5.0-9.0) Urine Specific [place] 1.027 (1.001-1.035) Urine Protein Trace (Negative) Urine Ketones 3+ (Negative) Urine Blood Negative /uL (Negative) Urine Nitrite Negative (Negative) Urine Bilirubin Negative (Negative) Urine Urobilinogen Normal mg/dL (Negative) Urine Leukocyte Esterase Negative /uL (Negative) Urine RBC 5 /hpf (0 - 4) Urine Microscopic WBC 1 /HPF (0-5) Urine Squamous Epithelial Cells Few /hpf (<5) Urine Bacteria Few /hpf (None Seen) Urine Mucus Few (None Seen) Urine Glucose Normal mg/dL (Normal) Lactic Acid Level 2.1 mmol/L (0.4-2.0) POC Glucose 133 mg/dl (70-106) Hemoglobin A1c 5.0 % A1C (<5.7) Lipase 35 U/L (12-53) Thyroid Stimulating Hormone (TSH) 0.48 uIU/mL (0.55-4.78) Beta HCG, Quantitative 0.6 mIU/mL (1.5-4.2) Other Laboratory Tests 10/12/25 05:09 10/11/25 13:30 Brief Hx & Hospital Course: History of Present Illness The patient is a 45-year-old female with past medical history of anxiety, anemia, arthritis, hyperlipidemia, hypertension, IBS, and thyroid disease who presented to [facility] ED with complaint of acute abdominal pain. Patient reports that she has been experiencing diffuse abdominal pain rating 7/10 numeric scale, associated with intractable nausea, vomiting, diarrhea, and lightheadedness for the past 1 day. Patient was seen and evaluated in the ED, laboratory data shows WBC 18.3, platelets 358, sodium 139, potassium 3.8, BUN 11, creatinine 0.54, GFR 115, glucose 133, calcium 9.2, lipase 35, hCG 0.6, lactic acid 2.5 trending down to 2.1, blood pressure 109/63, heart rate 126 trending down to 104, temperature 98.6 F, O2 saturation 99% on room air. Abdomen/pelvis CT revealing small hiatal hernia, no acute findings. Chest x-ray show no acute cardiopulmonary process. Patient was started on IV antibiotic regimen Zosyn, please see medication orders section in the computer. On my assessment, patient denied chest pain, no headache, dizziness, diaphoresis, shortness of breaths, no abdominal pain, nausea or vomiting at this moment, fever, no chills. Patient was admitted for further evaluation and medical management. Course of hospitalization: Patient was started on clear liquid diet, IV hydration as well as and empiric antibiotic therapy. Cultures has been negative during hospitalization. White blood cell count resolved within 24 hours. She continued to complain of abdominal pain as well as nausea and vomiting for which GI consultation was obtained. Patient underwent EGD yesterday with findings of mild gastritis with noted hiatal hernia. Patient was continued on Protonix, as well as and Carafate treatment. Patient will be discharged home as she is able to tolerate solid meal. She will be continued on both Protonix and Carafate twice a day as well as being prescribed Zofran 4 mg for persistent nausea and vomiting. Use she is instructed to continue all previous home medications. All questions answered. Physical examination General: Alert and Oriented x3. No acute distress. Well-nourished. Eyes: EOMI. Anicteric. HENT: Moist mucous membranes. Lungs: Clear to auscultation bilaterally. No accessory muscle use. Cardiovascular: Regular rate and rhythm. No murmur. No JVD. Abdomen: Soft, non-tender and non-distended. No palpable masses. Extremities: No edema. Non-tender. Skin: No rashes or lesions. Warm. Neurologic: No focal neurological deficits. CN II-XII grossly intact, but not individually tested. Psychiatric: Cooperative. Appropriate mood and affect. Total time spent with patient discussing and formulating plan of care: 35 minutes. This medical document was created using an electronic medical record system with [employer] dictation system. Although this document has been carefully reviewed, there may still be some phonetic and typographical errors. These areas are purely typographical due to imperfections of the software programs, and do not reflect any compromise in the patient's medical care. Consults/Reason for consult Gastroenterology: Abdominal pain Operations or Procedures 10/12/2025: EGD Condition at Discharge: Fair Final Diagnosis/Problems List Sirs without organ dysfunction Intractable nausea and vomiting Discharge Disposition: Home Discharge Instruct/Medications Diet: Regular Activity: No Restrictions, As Tolerated Follow Up/Referral: Follow up with Dr. Dennis Garcia in three weeks Medications: Carafate 1 g tablet p.o. b.i.d. for 30 days Protonix 40 mg p.o. b.i.d. for 30 days Zofran 4 mg dissolvable tablet q.8 hours as needed for nausea Continue all previous home medications Scheduled Atorvastatin Calcium (Atorvastatin Calcium), 1 TAB PO DAILY, (Reported) Ergocalciferol (Vitamin D), 1 CAP PO QWEEKLY, (Reported) Linaclotide Base (Linzess), 1 CAP PO QAM, (Reported) Losartan Potassium & Hydrochlo (Losartan Potassium/Hydroc), 1 TAB PO DAILY, (Reported) Meclizine HCl (Meclizine Hydrochloride), 1 TAB PO BID PRN, (Reported) Pantoprazole Sodium Sesquihydr (Protonix), 40 MG PO BID Prednisone (Prednisone), 1 TAB PO BID, (Reported) Semaglutide (Wegovy), 2.4 MG SC QWEEKLY, (Reported) Sucralfate (Carafate), 1 GM OR BID Tizanidine HCl (Tizanidine Hydrochloride), 1 CAP PO BID, (Reported) Scheduled PRN Ondansetron Odt 4MG Tab (Zofran Po), 4 MG PO Q8HP PRN 36 Discharge Statement: "Patient was advised to return to the ER or call 911 if any headaches, dizziness, shortness of breath, chest pain, abdominal pain, bleeding, fevers, or worsening of medical condition. Patient was counseled about treatment plan, medications, possible side effects, patientverbalized understanding. All questions were answered to the best of my ability. This discharge took greater then 30 minutes in planning, reviewing documentation, counseling the patient, and discussing with other team members." ASSESSMENT ASSESSMENT Assessment Sirs without organ dysfunction Intractable nausea and vomiting Date of Service: Oct 13, 2025 Billing Provider: SHERITA OATES NP Common Visit Codes: [id number]/OBS DISCH DAY >30min SHERITA OATES NP Oct 13, 2025 10:29
--- NOTE | 2025-10-13 16:47 | DVHPN2 ---
Progress Note - Dictate Date Seen: Oct 13, 2025 Medical Necessity Reason Pt with a Central, PICC or Fol: No Subjective Patient is still unable to hold any food down Complaining of nausea and vomiting No bowel movement recorded EGD showed minimal gastritis and a small 1-2 cm sliding-type hiatal hernia vital signs Vital Sign Date Time Temp Pulse Resp B/P (MAP) Pulse Ox O2 Delivery O2 Flow Rate FiO2 10/13/25 14:55 61 18 123/80 10/13/25 13:00 98.8 98 98.8 10/13/25 07:56 Room Air* 0 21 Total Intake and Output 10/12/25 10/12/25 10/13/25 15:00 23:00 07:00 Intake Total 125 ml 1175 ml 625 ml Balance 125 ml 1175 ml 625 ml medications Current Medications Medications Dose Ordered Sig/Dina Route Start Time Stop Time Status Last Admin Dose Admin Piperacillin Sod/ Tazobactam Sod 100 ml @ 25 mls/hr Q8HR IV 10/10/25 14:00 10/13/25 15:02 25 MLS/HR Clonidine HCl 0.1 mg Q4HP PRN PO 10/10/25 11:00 Albuterol 2.5 mg Q4HPRN PRN NEB 10/10/25 11:00 Cancel Ipratropium [place] 0.5 mg Q4HPRN PRN NEB 10/10/25 11:00 Cancel Acetaminophen/ Hydrocodone Bitart 1 tab Q4HP PRN PO 10/10/25 11:00 Hold Ondansetron HCl 4 mg Q4HP PRN IV 10/10/25 11:00 10/13/25 13:00 4 MG Docusate Sodium 100 mg BIDPRN PRN PO 10/10/25 11:00 Acetaminophen 650 mg Q6HP PRN PO 10/10/25 11:00 10/11/25 12:27 650 MG Nitroglycerin 0.4 mg Q5MINP PRN SL 10/10/25 12:00 Lorazepam 0.5 mg Q8HPRN PRN PO 10/10/25 12:15 10/10/25 13:31 0.5 MG Potassium Chloride/Sodium Chloride 1,000 ml @ 75 mls/hr [id number] IV 10/11/25 15:15 10/12/25 22:06 75 MLS/HR Pantoprazole Sodium 40 mg BID IV 10/11/25 22:00 10/13/25 10:02 40 MG Hydromorphone HCl 0.25 mg Q4HPRN PRN IV 10/11/25 17:15 10/13/25 14:55 0.25 MG Sucralfate 1 gm TID@0600,1130,2200 PO 10/13/25 06:00 10/13/25 10:03 1 GM objective General: NAD, AAOX3 Chest: lung landa clear to auscultation Heart: RRR, no murmur Abdomen: non-distended, no tenderness to palpation, +BS laboratory and microbiology Laboratory Tests 10/12/25 05:09 10/11/25 13:30 Test 10/12/25 05:09 Range/Units Serum Glucose 84 74-106 mg/dL Problems(with codes): (1) Intractable nausea and vomiting (2) Gastritis (3) Generalized weakness (4) Constipation (5) Anxiety reaction Prognosis Plan MiraLax 17 g p.o. daily Colace 100 mg p.o. twice a day Protonix and Carafate Zofran as needed for nausea and vomiting Gallbladder ultrasound Supportive care Plan discussed with: Patient RICHARD IRIZARRY MD Oct 13, 2025 16:47
[2025-10-13] MEDS: DOCUSATE SOD 100 MG CAP PO ONE (17:22)
[2025-10-13] MEDS: POLYETHYLENE GLYCOL 17 GM PWDR PO SCH (17:23)
--- NOTE | 2025-10-13 17:33 | DVH ---
TECHNIQUE: Real-time ultrasound imaging of the abdomen was performed with grayscale and color Doppler. INDICATION: n/v COMPARISON: None FINDINGS: Liver measures 15.8 cm. It is unremarkable in echogenicity .m hypoechoic structure in the right hepatic lobe measuring 1.8 cm. Portal vein is normal in caliber and demonstrates normal hepatopetal flow. Gallbladder demonstrates no evidence for cholelithiasis. There is no pericholecystic fluid. The wall thickness is normal. The common bile duct measures 4 mm. No intrahepatic biliary ductal dilatation. The right kidney measures 11.4 cm. No hydronephrosis or sonographic evidence of nephrolithiasis. The visualized portion of the pancreas is unremarkable. IMPRESSION: No sonographic evidence for cholelithiasis. 1.8 cm right lobe hypoechoic lesion. Recommend multiphasic MRI abdomen with and without contrast to characterize, can be done in the nonemergent setting.
[2025-10-13] MEDS: SOD CHL 0.45% WITH 20MEQ KCL 1,000 ML IV SCH (22:15)
[2025-10-14 01:00] VITALS: BP 113/73; PULSE 67; RESP 16; O2SAT 97
[2025-10-14 05:00] VITALS: BP 101/63; PULSE 66; RESP 16; O2SAT 99
[2025-10-14 09:22] VITALS: BP 103/72; PULSE 64; RESP 17; TEMP 98.1; O2SAT 98
--- NOTE | 2025-10-14 10:58 | DVHPN2 ---
Assessment/Plan Assessment/Plan 45 F with IBS admitted with interactible nausea and vomiting, seen by GI, EGD done. Patient was discharged yesterday but not able to tolerate oral. today she was able to tolerate oral feeding. counseled to keep liquid diet in the interim, c/w zofran, protonix maalox. stable to dc. please see dc summary for full course assessment and plan Sirs without organ dysfunction Intractable nausea and vomiting dyspepsia Plan discussed with: Patient Date of Service: Oct 14, 2025 Billing Provider: YUMI ROCHE MD Common Visit Codes: 82368-HQA/OBS DISCH DAY >30min YUMI ROCHE MD Oct 14, 2025 10:58
== END 2025-10-14 11:49 | disposition home or self-care (01) | DRG 241 ==
LOC: EDUNIT# 02:24 → ER 02:24 → EDBD 02:24 → OVERFLOW 11:47 → TELE-EAST 22:02 → EAST 10-13 14:55
PROVIDERS: ADMIT Nurse Practitioner Acute Care; ATTEND Nurse Practitioner Acute Care
PROC: 05H933Z Insertion of Infusion Device into Right Brachial Vein, Percutaneous Approach (ICD-10-PCS; 2025-10-10)
PROC: B54MZZA Ultrasonography of Right Upper Extremity Veins, Guidance (ICD-10-PCS; 2025-10-10)
PROC: 0DB98ZX Excision of Duodenum, Via Natural or Artificial Opening Endoscopic, Diagnostic (ICD-10-PCS; 2025-10-12)
PROC: 0DB48ZX Excision of Esophagogastric Junction, Via Natural or Artificial Opening Endoscopic, Diagnostic (ICD-10-PCS; 2025-10-12)
PROC: 0DB68ZX Excision of Stomach, Via Natural or Artificial Opening Endoscopic, Diagnostic (ICD-10-PCS; principal; 2025-10-12 13:34)
DX: K29.70 Gastritis, unspecified, without bleeding (principal); K22.10 Ulcer of esophagus without bleeding; R65.10 Systemic inflammatory response syndrome (SIRS) of non-infectious origin without acute organ dysfunction; E03.9 Hypothyroidism, unspecified; M06.9 Rheumatoid arthritis, unspecified; I10 Essential (primary) hypertension; E87.6 Hypokalemia; K44.9 Diaphragmatic hernia without obstruction or gangrene; E78.5 Hyperlipidemia, unspecified; F41.9 Anxiety disorder, unspecified; K58.0 Irritable bowel syndrome with diarrhea; Z91.041 Radiographic dye allergy status; Z88.5 Allergy status to narcotic agent; Z88.1 Allergy status to other antibiotic agents; Z90.710 Acquired absence of both cervix and uterus; Z86.19 Personal history of other infectious and parasitic diseases
CPT/HCPCS: 36415; 71045; 74176; 76705; 80048; 80053; 81001; 82962; 83036; 83605; 83690; 83735; 84443; 84702; 85025; 85610; 85652; 86141; 86850; 86900; 86901; 87040; 99291; G0378; J1100; J2250; J2405; J2470; J2543; J2704; Q0162